=== PATIENT | female | born 1955 | race Caucasian/White ===

== ENCOUNTER 2016-08-19 09:38 | Emergency (ER) | payer OTHER ==
[~2016-08-19] VITALS: Ht 167.6 cm; Wt 100.0 kg
[~2016-08-19 09:38] MED LIST: ACYCLOVIR400 MG PO; AMLODIPINE5 MG PO; ASPIR-8181 MG OR; AVALIDE1 TA1 OR; BETAMETH VAL0.1 % EX; CETIRIZINE10 MG PO; CITALOPRAM20 MG OR; CLARITIN10 MG PO; CLOPIDOGREL75 MG; CLOPIDOGREL75 MG PO; COUMADIN2.5 MG PO; ESGI1 PO; FLEXERIL OR; FLEXERIL PO; FLOVENT HFA44 MCG IN; FUROSEMIDE40 MG PO; HYDROXYZ HCL25 MG PO; IMITREX50 MG OR; KLONOPIN WAF0.5 MG OR; LIPITOR40 MG PO; LOPRESSOR5 MG/5 M1 PO; LORTAB 10 PO; LORTAB 1010 MG PO; LORTAB 7.57.5 MG PO; MEDROL4 M1 OR; METOPROL TAR25 MG PO; MIRTAZAPINE15 MG PO; NAPROSYN500 MG OR; NORCO1 TA1 PO; NORCO1 TA2 PO; NORCO1 TAB PO; OXYCODO-APAP1 TA1 OR; PERCOCET 5/325M1 TAB OR; PLAVIX75 MG OR; PLAVIX75 MG PO; POT CHLORIDE10 ME1 PO; PRAVASTATIN20 MG OR; PREMARIN0.625 MG OR; PREVACID30 M1 OR; REMERON15 MG PO; REMERON7.5 MG MT; RISPERDAL0.25 MG OR; RISPERIDONE2 MG PO; SERTRALINE50 MG PO; TORADOL OR; TRAMADOL HCL50 MG PO; VISTARIL 50MG C50 MG PO; VISTARIL25 MG MT; ZYRTEC10 MG OR
[2016-08-19 11:12] LABS: HEMATOCRIT 31.5 % (37.0-47.0); HEMOGLOBIN 10.6 g/dl (12.0-16.0); IMMATURE GRANULOCYTES 0.4 % (0.0-1.0); MEAN CELL VOLUME 93.8 fL CALC (80.0-100.0); MEAN CORPUSCULAR HGB 31.5 pG CALC (26.0-32.0); MEAN CORPUSCULAR HGB CONC 33.7 g/L CALC (32.0-36.0); NEUT# 4.47 thou/uL (2.00-7.15); RED BLOOD COUNT 3.36 mill/uL (4.20-5.60); RED CELL DISTRI WIDTH 13.2 % (11.5-15.5)
[2016-08-19 11:24] LABS: ALBUMIN 3.7 g/dL (3.2-5.0); ALKALINE PHOSPHATASE 104 u/l (38-126); ANION GAP 14 (6-22 (CALC)); BILIRUBIN, TOTAL 0.5 mg/dL (0.0-1.4); BUN 9 mg/dL (8-23); BUN/CREATININE RATIO 12 (12-20 (CALC)); CALCIUM 9.1 mg/dL (8.4-10.2); CARBON DIOXIDE 25 mmol/l (22-30); CHLORIDE 108 mmol/l (95-108); CREATININE 0.7 mg/dL (0.5-1.0); GFR > 60 ML/MIN (>=60 (CALC)); GFR FOR AFR.AMER. > 60 ML/MIN (>=60 (CALC)); GLUCOSE 97 mg/dL (82-115); POTASSIUM 3.7 mmol/l (3.5-5.1); SGOT/AST 15 u/l (9-36); SGPT/ALT 16 u/l (11-66); SODIUM 143 mmol/l (137-146); TOTAL PROTEIN 7.7 g/dL (6.3-8.2)
[2016-08-19 11:28] LABS: PROTHROMBIN TIME 10.5 SECONDS (9.0-12.5)
[2016-08-19 11:35] LABS: MYOGLOBIN 26 ng/mL (0 - 62)
[2016-08-19 12:13] LABS: INFLUENZA A NONE DETECTED (NONE DETECT); INFLUENZA B NONE DETECTED (NONE DETECT)
[2016-08-19] MEDS ORDERED: MEDDOSEPAK PO (12:32)
[2016-08-19] MEDS ORDERED: VENTOLIN HFA IN (12:32)
[2016-08-19] MEDS ORDERED: LEVAQUIN500 MG PO (12:32)
[2016-08-19 12:42] VITALS: BP 149/70
== END 2016-08-19 12:50 | disposition left against medical advice (07) | DRG 192 ==
LOC: ED 09:38
PROVIDERS: Emergency Medicine
DX: J44.1 Chronic obstructive pulmonary disease with (acute) exacerbation (principal); I10 Essential (primary) hypertension; R09.02 Hypoxemia; J45.909 Unspecified asthma, uncomplicated; G40.909 Epilepsy, unspecified, not intractable, without status epilepticus; F31.9 Bipolar disorder, unspecified; F17.210 Nicotine dependence, cigarettes, uncomplicated; G89.29 Other chronic pain; M54.9 Dorsalgia, unspecified
CPT/HCPCS: J1956

== ENCOUNTER 2017-04-03 15:03 | Inpatient (IN) | payer OTHER ==
[~2017-04-03] VITALS: Ht 167.6 cm; Wt 104.8 kg
[~2017-04-03 15:03] MED LIST changes: +ACCOLATE10 MG PO; +ALAVERT10 M1 PO; +AMLODIPINE BESY10 MG PO; +BUSPAR10 M1 PO; +CILOSTAZOL50 MG PO; +COZAAR25 MG PO; +CYCLOBENZAPR10 MG PO; +DILANTIN100 MG PO; +DITROPAN PO; +DIVALPROEX250 MG PO; +FOLIC ACID1 M1; +HYDROCHLOROT12.5 MG PO; +LASIX 40 MG TAB40 MG PO; +LEVAQUIN500 MG PO; +MEDDOSEPAK PO; +MIRAPEX0.25 MG PO; +NAPROXEN500 MG PO; +NITROSTAT0.4 MG SL; +OXYBUTYNIN5 M1 PO; +PAXIL30 MG PO; +SERTRALINE100 MG PO; +SINGULAIR10 MG PO; +TRAZODONE100 MG PO; +VENTOLIN HFA IN
[2017-04-06 08:53] LABS: HEMATOCRIT 40.4 % (37.0-47.0); HEMOGLOBIN 13.8 g/dl (12.0-16.0); IMMATURE GRANULOCYTES 0.6 % (0.0-1.0); MEAN CELL VOLUME 89.2 fL CALC (80.0-100.0); MEAN CORPUSCULAR HGB 30.5 pG CALC (26.0-32.0); MEAN CORPUSCULAR HGB CONC 34.2 g/L CALC (32.0-36.0); NEUT# 5.26 thou/uL (2.00-7.15); RED BLOOD COUNT 4.53 mill/uL (4.20-5.60); RED CELL DISTRI WIDTH 12.4 % (11.5-15.5)
[2017-04-06 09:19] LABS: ANION GAP 18 (6-22 (CALC)); BUN 22 mg/dL (8-23); BUN/CREATININE RATIO 26 (12-20 (CALC)); CALCIUM 9.9 mg/dL (8.4-10.2); CARBON DIOXIDE 26 mmol/l (22-30); CHLORIDE 102 mmol/l (95-108); CREATININE 0.8 mg/dL (0.5-1.0); GFR > 60 ML/MIN (>=60 (CALC)); GFR FOR AFR.AMER. > 60 ML/MIN (>=60 (CALC)); GLUCOSE 114 mg/dL (82-115); POTASSIUM 3.8 mmol/l (3.5-5.1); SODIUM 142 mmol/l (137-146)
[2017-04-06 09:25] LABS: ACT PARTIAL THROMBO TIME 35.6 SECONDS (20.0-32.5); PROTHROMBIN TIME 11.2 SECONDS (9.0-12.5)
[2017-04-06 15:10] VITALS: BP 149/65
[2017-04-06 15:25] VITALS: BP 134/66
[2017-04-06 15:40] VITALS: BP 137/68
[2017-04-06 15:56] VITALS: BP 147/62
[2017-04-06 16:10] VITALS: BP 129/75
[2017-04-06 19:08] VITALS: BP 140/88
[2017-04-07 00:05] VITALS: BP 133/76
[2017-04-07 03:40] VITALS: BP 150/66
[2017-04-07 06:13] LABS: HEMATOCRIT 29.4 % (37.0-47.0); HEMOGLOBIN 9.9 g/dl (12.0-16.0)
[2017-04-07 06:28] LABS: ANION GAP 14 (6-22 (CALC)); BUN 14 mg/dL (8-23); BUN/CREATININE RATIO 21 (12-20 (CALC)); CALCIUM 8.9 mg/dL (8.4-10.2); CARBON DIOXIDE 28 mmol/l (22-30); CHLORIDE 101 mmol/l (95-108); CREATININE 0.7 mg/dL (0.5-1.0); GFR > 60 ML/MIN (>=60 (CALC)); GFR FOR AFR.AMER. > 60 ML/MIN (>=60 (CALC)); GLUCOSE 118 mg/dL (82-115); MAGNESIUM 1.7 mg/dL (1.6-2.3); POTASSIUM 4.3 mmol/l (3.5-5.1); SODIUM 139 mmol/l (137-146)
[2017-04-07 09:17] VITALS: BP 143/73
[2017-04-07 15:18] VITALS: BP 140/77
[2017-04-07 20:15] VITALS: BP 117/56
[2017-04-08 00:45] VITALS: BP 137/61
[2017-04-08 05:16] VITALS: BP 127/50
[2017-04-08 05:29] LABS: HEMATOCRIT 26.3 % (37.0-47.0); HEMOGLOBIN 8.7 g/dl (12.0-16.0)
[2017-04-08 05:34] LABS: ANION GAP 14 (6-22 (CALC)); BUN 10 mg/dL (8-23); BUN/CREATININE RATIO 16 (12-20 (CALC)); CALCIUM 8.7 mg/dL (8.4-10.2); CARBON DIOXIDE 27 mmol/l (22-30); CHLORIDE 100 mmol/l (95-108); CREATININE 0.6 mg/dL (0.5-1.0); GFR > 60 ML/MIN (>=60 (CALC)); GFR FOR AFR.AMER. > 60 ML/MIN (>=60 (CALC)); GLUCOSE 108 mg/dL (82-115); POTASSIUM 3.6 mmol/l (3.5-5.1); SODIUM 138 mmol/l (137-146)
[2017-04-08 07:24] VITALS: BP 127/76
[2017-04-08 08:35] VITALS: BP 127/76
[2017-04-08] MEDS ORDERED: PERCOCET 10/31 COMBO PO (12:26)
[2017-04-08] MEDS ORDERED: PROTONIX40 MG PO (12:28)
[2017-04-08] MEDS ORDERED: ASPIRIN EC325 MG PO (12:28)
== END 2017-04-08 13:30 | disposition home or self-care (01) | DRG 470 ==
LOC: MS2 04-06 08:08
PROVIDERS: ADMIT Orthopaedic Surgery; ATTEND Internal Medicine
PROC: 0SR904A Replacement of Right Hip Joint with Ceramic on Polyethylene Synthetic Substitute, Uncemented, Open Approach (ICD-10-PCS; principal; 2017-04-06)
DX: M16.11 Unilateral primary osteoarthritis, right hip (principal); M25.751 Osteophyte, right hip; I10 Essential (primary) hypertension; F32.9 Major depressive disorder, single episode, unspecified; F41.9 Anxiety disorder, unspecified; J44.9 Chronic obstructive pulmonary disease, unspecified; Z96.652 Presence of left artificial knee joint; Z87.891 Personal history of nicotine dependence
CPT/HCPCS: J1756; J2270; J2795

== ENCOUNTER 2017-04-20 20:10 | Emergency (ER) | payer OTHER ==
[~2017-04-20] VITALS: Ht 167.6 cm; Wt 102.7 kg
[~2017-04-20 20:10] MED LIST changes: +ASPIRIN EC325 MG PO; +PERCOCET 10/31 COMBO PO; +PROTONIX40 MG PO
[2017-04-20] MEDS ORDERED: PERCOCET 5/325M1 TAB PO (21:29)
[2017-04-20 21:44] VITALS: BP 124/67
== END 2017-04-20 21:50 | disposition home or self-care (01) | DRG 951 ==
LOC: ED 20:10
DX: Z48.01 Encounter for change or removal of surgical wound dressing (principal); Z96.641 Presence of right artificial hip joint

== ENCOUNTER 2017-05-16 17:42 | Inpatient (IN) | payer OTHER ==
[~2017-05-16] VITALS: Ht 167.6 cm; Wt 109.3 kg
[~2017-05-16 17:42] MED LIST changes: +PERCOCET 5/325M1 TAB PO
--- NOTE | 2017-05-16 19:30 | NUR ---
PATIENT TO ROOM 6 WITH ASSIST OF WALKER.
--- NOTE | 2017-05-16 20:25 | NUR ---
PATIENT MEDICATED FOR PAIN. ABX HUNG AFTER BLOOD CULTURES DRAWN.
[2017-05-16 20:47] LABS: HEMATOCRIT 37.9 % (37.0-47.0); HEMOGLOBIN 12.1 g/dl (12.0-16.0); IMMATURE GRANULOCYTES 0.6 % (0.0-1.0); MEAN CELL VOLUME 93.1 fL CALC (80.0-100.0); MEAN CORPUSCULAR HGB 29.7 pG CALC (26.0-32.0); MEAN CORPUSCULAR HGB CONC 31.9 g/L CALC (32.0-36.0); NEUT# 3.24 thou/uL (2.00-7.15); RED BLOOD COUNT 4.07 mill/uL (4.20-5.60); RED CELL DISTRI WIDTH 13.7 % (11.5-15.5)
--- NOTE | 2017-05-16 21:02 | NUR ---
PATIENT STATES PAIN IS IMRPOVED. TOLERATING VANCOMYCIN WELL. AWARE OF PLANS TO ADMIT.
[2017-05-16 21:05] LABS: ANION GAP 17 (6-22 (CALC)); BUN 11 mg/dL (8-23); BUN/CREATININE RATIO 14 (12-20 (CALC)); CARBON DIOXIDE 26 mmol/l (22-30); CHLORIDE 102 mmol/l (95-108); CREATININE 0.8 mg/dL (0.5-1.0); GFR > 60 ML/MIN (>=60 (CALC)); GFR FOR AFR.AMER. > 60 ML/MIN (>=60 (CALC)); GLUCOSE 102 mg/dL (82-115); POTASSIUM 4.7 mmol/l (3.5-5.1); SODIUM 141 mmol/l (137-146)
--- NOTE | 2017-05-16 21:50 | NUR ---
FIRST ABX COMPLETED. SECOND ABX HUNG. PATIENT STATES PAIN IS STARTING TO RETURN. RATES PAIN A 3-4 ON 1-10 PAIN SCALE. ALL DIAGNOSTICS COMPLETED. AWAITING PLAN OF CARE.
--- NOTE | 2017-05-16 23:02 | NUR ---
REPORT CALLED TO DONNA. PATIENT READIED FOR TRANSPORT TO FLOOR.
--- NOTE | 2017-05-16 23:11 | NUR ---
PATIENT REQUESTING PAIN MED. WILL ATTEMPT TO MEDICATE PRIOR TO TRANSPORT TO FLOOR.
--- NOTE | 2017-05-16 23:30 | NUR ---
PT TO ROOM 289 VIA STRETCHER ACCOMPANIED BY ER STAFF. PT ABLE TO AMBULATE TO BED WITH WALKER.
--- NOTE | 2017-05-16 23:32 | NUR ---
PATIENT MEDICATED ADDITIONALLY FOR PAIN. PATIENT TRANSPORTED TO FLOOR VIA STRETCHER AND WITH RN.
[2017-05-16 23:35] VITALS: BP 126/86
--- NOTE | 2017-05-16 23:40 | NUR ---
PT SITTING UP IN BED. PT IS ALERT AND ORIENTED X3. PERRLA. LUNGS ARE CLEAR. RESP ARE EVEN AND UNLABORED. NO DISTRESS NOTED. HR REGULAR. PULSES PALPABLE THROUGHOUT. EDEMA TO RIGHT LOWER EXTREMITY. WOUND TO RIGHT HIP. PICTURES PLACED ON CHART. BS ACTIVE. PT REPORTS A NOMRAL BM ON 05/16/17 AM. #20 LAC SALINE LOCKED AT THIS TIME. WILL CONTINUE TO MONITOR
--- NOTE | 2017-05-17 04:04 | NUR ---
PT RESTING IN BED WITH EYES CLOSED. RESP ARE EVEN AND UNLABORED. NO DISTRESS NOTED. WILL CONTINUE TO MONITOR
--- NOTE | 2017-05-17 05:00 | NUR ---
LAB INTO DRAW AM LABS
[2017-05-17 05:45] VITALS: BP 114/70
--- NOTE | 2017-05-17 07:45 | NUR ---
ASSESSMENT IS COMPLETED: IV SITE IS FREE FROM REDNESS OR EDEMA. INCISON SITE HAS SCABBING NOTED. AND REDNESS WITH WARM TO THE TOUCH. CONTINUE TO OSBERVE AND MONITOR.
--- NOTE | 2017-05-17 09:47 | NUR ---
S: MADAN OCONNELL is a 62 F who presents with right hip pain secondary to cellulitis. She has a history of hip replacement on 04/06/17, smoking, HTN. All medications in patient's chart were reviewed. O: VS: BP 120/42, P 69, RR 18,T 96.4 W 108.862 kg, HT 66in, Scr= 0.8, CrCl= 91.0 ml/min A: Wound culture is pending. Blood culture pending. P: Patient is on Zosyn 3.375 gm IV Q6H. Vancomycin ordered for pharmacy to dose. Start Vancomycin 1250 mg IV Q12H. Vancomycin trough is drawn before the 4th dose on 05/18/17 @ 21:30. Vancomycin goal trough is between 10-15 mcg/ml. Pharmacy will follow and or advise on antibiotics use as needed.
--- NOTE | 2017-05-17 12:15 | NUR ---
PT IS VISITING WITH FAMILY AND FRIENDS NO DISTRESS NOTED. CONTINUE TO OBSERVE AND MONITOR.
--- NOTE | 2017-05-17 12:34 | NUR ---
[facility] Pt was concerned about Trazodone. She claims she didn't sleep last night. Went through grocery bag full of medications. Pt claims she takes all medications as directed, however duplicate vials of buspirone, traxodone, divalproex, loratadine, and hydroxyzine are present in the bag. Pt states that she has KNDA and complains of being hungry. (Pt's food came in during this interview). Pt insists that she needs 400 mg of trazodone tonight to sleep. Pt had no further questions or concerns.
[2017-05-17] MEDS ORDERED: PAROXETINE10 MG PO (12:38)
[2017-05-17 15:20] VITALS: BP 114/58
--- NOTE | 2017-05-17 16:15 | NUR ---
PT CONTINUES TO REST WITH NO DISTRESS NOTEED IV SITE IS REE FROM REDNESS OR EDEMA. CONTINUE TO OSBERVE AND MONITOR.
--- NOTE | 2017-05-17 16:24 | NUR ---
ORDERS FOR DRESSING ON R HIP. PT INQUIRED ABOUT HER XRAY RESULTS. CLEANED WITH NS AND PLACED WET TO DRY DRESSING SECURED WITH TAPE,
[2017-05-17 19:20] VITALS: BP 110/65
--- NOTE | 2017-05-17 19:45 | NUR ---
PT SITTING UP IN BED VISITING WITH VISITOR. PT IS ALERT AND ORIENTED X3. PERRLA. RESP ARE EVEN AND UNLABORED. NO DISTRESS NOTED. LUNGS ARE CLEAR. HR REGULAR. PULESE PALPABLE THROUGHOUT. EDEMA NOTED TO RIGHT LOWER EXT. BS ACTIVE. #20 LAC SALINE LOCKED. NO REDNESS OR EDEMA NOTED. WILL CONTINUE TO MONITOR
--- NOTE | 2017-05-18 | NUR ---
PT RESTING IN BED WITH EYES CLOSED. RESP ARE EVEN AND UNLABORED. NO DISTRESS NOTED. WILL CONTINUE TO MONITOR
[2017-05-18 03:24] VITALS: BP 114/62
--- NOTE | 2017-05-18 04:00 | NUR ---
PT RESTING IN BED WITH EYES CLOSED. RESP ARE EVEN AND UNLABORED. NO DISTRESS NOTED. WILL CONTINUE TO MONITOR
[2017-05-18 07:54] LABS: HEMATOCRIT 35.6 % (37.0-47.0); HEMOGLOBIN 10.8 g/dl (12.0-16.0); IMMATURE GRANULOCYTES 0.2 % (0.0-1.0); MEAN CELL VOLUME 97.5 fL CALC (80.0-100.0); MEAN CORPUSCULAR HGB 29.6 pG CALC (26.0-32.0); MEAN CORPUSCULAR HGB CONC 30.3 g/L CALC (32.0-36.0); NEUT# 2.58 thou/uL (2.00-7.15); RED BLOOD COUNT 3.65 mill/uL (4.20-5.60); RED CELL DISTRI WIDTH 13.6 % (11.5-15.5)
[2017-05-18 08:02] LABS: ANION GAP 11 (6-22 (CALC)); BUN 9 mg/dL (8-23); BUN/CREATININE RATIO 11 (12-20 (CALC)); CALCIUM 9.4 mg/dL (8.4-10.2); CARBON DIOXIDE 23 mmol/l (22-30); CHLORIDE 111 mmol/l (95-108); CREATININE 0.8 mg/dL (0.5-1.0); GFR > 60 ML/MIN (>=60 (CALC)); GFR FOR AFR.AMER. > 60 ML/MIN (>=60 (CALC)); GLUCOSE 87 mg/dL (82-115); MAGNESIUM 1.9 mg/dL (1.6-2.3); POTASSIUM 4.5 mmol/l (3.5-5.1); SODIUM 140 mmol/l (137-146)
--- NOTE | 2017-05-18 08:05 | NUR ---
ASSESSMENT IS COMPLETD: PT IS RELAXING IN BED WITH NO DISTRESS NOTED. IV SITE IS FREE FROM REDNESS OR EDEMA. DRESSING ON R HIP IS CDI. CONTINUE TO OSBERVE AND MONITOR.
[2017-05-18 08:15] VITALS: BP 127/61
--- NOTE | 2017-05-18 08:15 | NUR ---
RECEIVED REPORT FROM CLAUDIA THOMPSON. PT WAS AWAKE IN BED. PT ASSESSMENT COMPLETED. A&O X3. PERRLA. RESPIRATIONS EVEN AND UNLABORED. LUNG SOUNDS CLEAR IN ALL AREAS. HR NORMAL. BOWEL SOUNDS ACTIVE. STRONG RADIAL/PEDAL PULSES. GOOD CAP REFILL, <3 SECONDS. SLIGHT PINK TONE ON RIGHT HIP. NO EDEMA OR WARMTH TO AREA. PT STATES PAIN 7/10. BED IN LOWEST POSITION. WHEELS LOCKED. CALL LIGHT PLACED WITHIN REACH. PT ENCOURAGED TO CALL FOR HELP.
--- NOTE | 2017-05-18 08:20 | NUR ---
SPOKE WITH JOZEF IN THE LAB RE: WOUND CS AND WAS INFORMED PT HAS ECOLI IN THE WOUND SENSITIVITY WILL BE TOMORROW.
[2017-05-18 08:56] VITALS: BP 127/61
--- NOTE | 2017-05-18 10:15 | NUR ---
PT STATE PAIN WAS 7/10. PT MEDICATED W/ PERCOCET 2 TABS ORDER. PT STATES 1 TAB HAS NOT BEEN EFFECTIVE. PT DRESSING TO RIGHT HIP WAS CHANGED. REMOVED ABD PAD AND NOTED YELLOW EXUDATE FROM PROXIMAL SITE, WOUND BED WITH YELLOW SLOUGHING TISSUE. SMALL DISTAL OPENING WITH DRIED SCABBING THAT IS LIFTING AT EDGES. CLEASED WITH NS, WET TO DRY DRESSING APPLIED. NO BLEEDING NOTED. PT TOLERATED FAIR. BED IN LOWEST POSITION, WHEELS LOCKED. CALL LIGHT PLACED WITHIN REACH. PT EDUCATED TO CALL FOR HELP.
--- NOTE | 2017-05-18 12:35 | NUR ---
PT IS RELAXING AND VISITING WITH FAMILY AND FRIENDS NO DISTRESS NOTED. IV SITE IS FREE FROM REDNESS OR EDEMA.
[2017-05-18] MEDS ORDERED: AUGMENTIN875TAB PO (13:19)
[2017-05-18] MEDS ORDERED: DOXYCYCL HYC100 MG PO (13:19)
[2017-05-18] MEDS ORDERED: FLORASTOR250 M1 PO (13:24)
--- NOTE | 2017-05-18 14:08 | NUR ---
PT RECEIVED DISCHARGE INSTRUCTIONS AND VERBALIZED UNDERSTANDING. IV SITE DISCONTINEUD CATHETER INTACT. NO REDNESS OR EDEMA. FAMILY IN THE ROOM. EXPLAINED DISCHARGE INSTRUCTIONS , Discharge instructions given. Patient verbalizes understanding of same. Discharged in stable condition via Wheelchair to Home with family. All belongings sent with pt.
--- NOTE | 2017-05-18 19:03 | NUR ---
SPOKE TO PT RE: MEDICATIONS WILL WINE MAKER ON SUNDAY, IT IS IN THE MED ROOM.
== END 2017-05-18 14:03 | disposition home health service (06) | DRG 863 ==
LOC: ED 17:42 → ED-I 22:20 → ED 22:35 → MS2 22:36
PROVIDERS: Family Medicine; Nurse Practitioner Family; ADMIT Internal Medicine; ATTEND Internal Medicine
PROC: 3E0234Z Introduction of Serum, Toxoid and Vaccine into Muscle, Percutaneous Approach (ICD-10-PCS; principal; 2017-05-17)
DX: T81.4XXA Infection following a procedure, initial encounter (principal); L03.115 Cellulitis of right lower limb; E11.9 Type 2 diabetes mellitus without complications; B96.20 Unspecified Escherichia coli [E. coli] as the cause of diseases classified elsewhere; B96.89 Other specified bacterial agents as the cause of diseases classified elsewhere; I10 Essential (primary) hypertension; E78.5 Hyperlipidemia, unspecified; F17.210 Nicotine dependence, cigarettes, uncomplicated; F31.9 Bipolar disorder, unspecified; J44.9 Chronic obstructive pulmonary disease, unspecified; M19.90 Unspecified osteoarthritis, unspecified site; G40.909 Epilepsy, unspecified, not intractable, without status epilepticus; Y83.1 Surgical operation with implant of artificial internal device as the cause of abnormal reaction of the patient, or of later complication, without mention of misadventure at the time of the procedure; Z96.641 Presence of right artificial hip joint; Z96.652 Presence of left artificial knee joint; Z79.84 Long term (current) use of oral hypoglycemic drugs; Z86.73 Personal history of transient ischemic attack (TIA), and cerebral infarction without residual deficits; Z23 Encounter for immunization
CPT/HCPCS: J1650; J3370

== ENCOUNTER 2017-09-26 11:32 | Emergency (ER) | payer OTHER ==
[~2017-09-26] VITALS: Ht 167.6 cm; Wt 110.0 kg
[~2017-09-26 11:32] MED LIST changes: +AUGMENTIN875TAB PO; +DAPTOMYCIN500 MG IV; +DOXYCYCL HYC100 MG PO; +FLORASTOR250 M1 PO; +PAROXETINE10 MG PO
[2017-09-26 12:46] LABS: HEMATOCRIT 36.6 % (37.0-47.0); HEMOGLOBIN 12.3 g/dl (12.0-16.0); IMMATURE GRANULOCYTES 0.6 % (0.0-1.0); MEAN CELL VOLUME 89.1 fL CALC (80.0-100.0); MEAN CORPUSCULAR HGB 29.9 pG CALC (26.0-32.0); MEAN CORPUSCULAR HGB CONC 33.6 g/L CALC (32.0-36.0); NEUT# 4.25 thou/uL (2.00-7.15); RED BLOOD COUNT 4.11 mill/uL (4.20-5.60); RED CELL DISTRI WIDTH 12.7 % (11.5-15.5)
[2017-09-26 12:56] LABS: BUN 18 mg/dL (8-23); BUN/CREATININE RATIO 16 (12-20 (CALC)); CHLORIDE 98 mmol/l (95-108); CREATININE 1.1 mg/dL (0.5-1.0); GFR 50 ML/MIN (>=60 (CALC)); GFR FOR AFR.AMER. > 60 ML/MIN (>=60 (CALC)); SODIUM 139 mmol/l (137-146)
[2017-09-26 12:57] LABS: ANION GAP 14 (6-22 (CALC)); CARBON DIOXIDE 30 mmol/l (22-30); POTASSIUM 3.2 mmol/l (3.5-5.1)
[2017-09-26 15:23] VITALS: BP 106/59
== END 2017-09-26 15:23 | disposition short-term general hospital (02) | DRG 282 ==
LOC: ED 11:32
PROVIDERS: Family Medicine
DX: I21.4 Non-ST elevation (NSTEMI) myocardial infarction (principal); I10 Essential (primary) hypertension; F17.210 Nicotine dependence, cigarettes, uncomplicated; M19.90 Unspecified osteoarthritis, unspecified site; G40.909 Epilepsy, unspecified, not intractable, without status epilepticus; M25.551 Pain in right hip; M25.511 Pain in right shoulder; W19.XXXA Unspecified fall, initial encounter; Y92.009 Unspecified place in unspecified non-institutional (private) residence as the place of occurrence of the external cause

== ENCOUNTER 2017-10-05 08:42 | Emergency (ER) | payer OTHER ==
[~2017-10-05] VITALS: Ht 167.6 cm; Wt 110.0 kg
[2017-10-05] MEDS ORDERED: ATORVASTATIN CA80 MG PO (09:20)
[2017-10-05] MEDS ORDERED: BRILINTA90 MG PO (09:20)
[2017-10-05] MEDS ORDERED: TRAZODONE50 MG PO (09:21)
[2017-10-05 09:27] LABS: URINE BILIRUBIN - DIPSTICK NEGATIVE (NEGATIVE); URINE BLOOD DIPSTICK NEGATIVE (NEGATIVE); URINE COLOR YELLOW; URINE GLUCOSE - DIPSTICK NEGATIVE (NEGATIVE); URINE KETONE NEGATIVE (NEGATIVE); URINE LEUK ESTERASE NEGATIVE (NEGATIVE); URINE NITRITE - DIPSTICK NEGATIVE (Negative); URINE PH 6.5 (4.5-8.0); URINE PROTEIN - DIPSTICK NEGATIVE (NEG-TRACE); URINE UROBILINOGEN - DIPSTICK 0.2 E.U./dL (0.2)
[2017-10-05 09:30] LABS: URINE CLARITY CLEAR
[2017-10-05 09:31] LABS: HEMATOCRIT 32.3 % (37.0-47.0); HEMOGLOBIN 10.8 g/dl (12.0-16.0); IMMATURE GRANULOCYTES 0.7 % (0.0-1.0); MEAN CELL VOLUME 88.3 fL CALC (80.0-100.0); MEAN CORPUSCULAR HGB 29.5 pG CALC (26.0-32.0); MEAN CORPUSCULAR HGB CONC 33.4 g/L CALC (32.0-36.0); NEUT# 5.47 thou/uL (2.00-7.15); RED BLOOD COUNT 3.66 mill/uL (4.20-5.60); RED CELL DISTRI WIDTH 12.9 % (11.5-15.5)
[2017-10-05 09:42] LABS: ALBUMIN 3.3 g/dL (3.2-5.0); ALKALINE PHOSPHATASE 124 u/l (38-126); ANION GAP 13 (6-22 (CALC)); BILIRUBIN, TOTAL 0.5 mg/dL (0.0-1.4); BUN 9 mg/dL (8-23); BUN/CREATININE RATIO 16 (12-20 (CALC)); CARBON DIOXIDE 21 mmol/l (22-30); CREATININE 0.6 mg/dL (0.5-1.0); GFR > 60 ML/MIN (>=60 (CALC)); GFR FOR AFR.AMER. > 60 ML/MIN (>=60 (CALC)); POTASSIUM 3.8 mmol/l (3.5-5.1); SGOT/AST 13 u/l (9-36); SGPT/ALT 24 u/l (11-66); SODIUM 140 mmol/l (137-146); TOTAL PROTEIN 6.8 g/dL (6.3-8.2)
[2017-10-05 09:43] LABS: CHLORIDE 110 mmol/l (95-108)
[2017-10-05] MEDS ORDERED: DOXYCYCL HYC100 MG PO (11:20)
[2017-10-05] MEDS ORDERED: ALBUTEROL SUL0.083 % IN (11:20)
[2017-10-05 11:54] VITALS: BP 145/74
== END 2017-10-05 11:54 | disposition home or self-care (01) | DRG 192 ==
LOC: ED 08:42
PROVIDERS: Family Medicine
DX: J44.1 Chronic obstructive pulmonary disease with (acute) exacerbation (principal); F17.210 Nicotine dependence, cigarettes, uncomplicated; R06.02 Shortness of breath; M54.5 Low back pain; I10 Essential (primary) hypertension; R05 Cough

== ENCOUNTER 2018-01-08 19:05 | Emergency (ER) | payer OTHER ==
[~2018-01-08] VITALS: Ht 167.6 cm; Wt 107.3 kg
[~2018-01-08 19:05] MED LIST changes: +ALBUTEROL SUL0.083 % IN; +ATORVASTATIN CA80 MG PO; +BRILINTA90 MG PO; +IBUPROFEN600 MG PO; +TRAZODONE50 MG PO
[2018-01-08] MEDS ORDERED: KEFLEX500 M1 PO (19:44)
[2018-01-08 19:58] VITALS: BP 170/89
== END 2018-01-08 19:58 | disposition home or self-care (01) ==
LOC: ED 19:05
DX: S81.012D Laceration without foreign body, left knee, subsequent encounter (principal); M19.90 Unspecified osteoarthritis, unspecified site; I10 Essential (primary) hypertension; G40.909 Epilepsy, unspecified, not intractable, without status epilepticus; I25.2 Old myocardial infarction; J44.9 Chronic obstructive pulmonary disease, unspecified; X58.XXXD Exposure to other specified factors, subsequent encounter

== ENCOUNTER 2018-06-20 08:10 | Inpatient (IN) | payer OTHER ==
[~2018-06-20] VITALS: Ht 167.6 cm; Wt 111.4 kg
[~2018-06-20 08:10] MED LIST changes: +KEFLEX500 M1 PO
--- NOTE | 2018-06-20 08:20 | NUR ---
PATIENT TO ROOM VIA EMS AND PHYSICIAN AT BEDSIDE FOR EVAL
--- NOTE | 2018-06-20 08:54 | NUR ---
RECONCILLING MEDICATION, PT STATES THAT SHE HAS A LOT OF OTHER MEDICATIONS BUT SHE DOES NOT TAKE ANY OF THEM EXCEPT TWO AND NEBULIZER. PT CANT REMEMBER THE OTHER NAMES OF MEDICATIONS.
--- NOTE | 2018-06-20 08:56 | NUR ---
PT HAS SKIN TEAR ON UPPER FOREARM OF RIGHT ARM FROM HITTING ARM LAST NIGHT ON CABINET. CLEANSED AND BANDAGED UP, NO BLEEDING
[2018-06-20 09:12] LABS: HEMATOCRIT 37.7 % (37.0-47.0); HEMOGLOBIN 12.2 g/dl (12.0-16.0); IMMATURE GRANULOCYTES 0.4 % (0.0-5.0); MEAN CORPUSCULAR HGB 31.3 pG CALC (26.0-32.0); MEAN CORPUSCULAR HGB CONC 32.4 g/L CALC (32.0-36.0); NEUT# 12.76 thou/uL (2.00-7.15); RED BLOOD COUNT 3.9 mill/uL (4.20-5.60); RED CELL DISTRI WIDTH 13.1 % (11.5-15.5)
[2018-06-20 09:19] LABS: MEAN CELL VOLUME 96.7 fL CALC (80.0-100.0)
[2018-06-20 09:28] LABS: ALBUMIN 3.6 g/dL (3.2-5.0); ALKALINE PHOSPHATASE 147 u/l (38-126); ANION GAP 14 (6-22 (CALC)); BILIRUBIN, TOTAL 0.6 mg/dL (0.0-1.4); BUN 10 mg/dL (8-23); BUN/CREATININE RATIO 18 (12-20 (CALC)); CARBON DIOXIDE 24 mmol/l (22-30); CHLORIDE 106 mmol/l (95-108); CREATININE 0.6 mg/dL (0.5-1.0); GFR > 60 ML/MIN (>=60 (CALC)); GFR FOR AFR.AMER. > 60 ML/MIN (>=60 (CALC)); POTASSIUM 3.6 mmol/l (3.5-5.1); SGOT/AST 12 u/l (9-36); SODIUM 141 mmol/l (137-146); TOTAL PROTEIN 6.9 g/dL (6.3-8.2)
--- NOTE | 2018-06-20 09:30 | NUR ---
BIPAP STANDBY. PLACED ON 2L NC.
--- NOTE | 2018-06-20 09:30 | NUR ---
PT STATES FEELS MUCH BETTER AFTER BIPAP REMOVED AND NEBULIZER. SITTING UP TALKING, IS ABLE TO COUGH UP YELLOWISH SPUTUM. PT STATES HAS BEEN LONG TIME CIGARETTE SMOKER AND CONTINUES TO SMOKE
--- NOTE | 2018-06-20 10:07 | NUR ---
PT UP TO BEDSIDE COMMODE, STATES FEELS MUCH BETTER
--- NOTE | 2018-06-20 10:58 | NUR ---
ASSISTED PT UP TO BEDSIDE COMMODE, TOTAL OF 400CC OF URINE OUTPUT AT THIS TIME. STATES FEELS MUCH BETTER, EASIER BREATHING SITTING UP IN BED AT THIS TIME, WITH SIDE RAILS UP AND CALL LIGHT WITHIN REACH.
--- NOTE | 2018-06-20 11:45 | NUR ---
PT COMPLAINT OF HEADACHE, TYLENOL 500 MG. ORDER GIVEN VERBAL AND GIVEN TO PT
--- NOTE | 2018-06-20 11:50 | NUR ---
PT DOWN TO CT SSCAN
--- NOTE | 2018-06-20 12:10 | NUR ---
REPORT CALLED TO MED SURG FOR CONTINUATION OF CARE
--- NOTE | 2018-06-20 12:10 | NUR ---
FOOD TRAY GIVEN PT WILL GO UP TO MED SURG SOON TRAY IS DONE
--- NOTE | 2018-06-20 12:42 | NUR ---
PT ARRIVED TO FLOOR VIA STRETCHER ACCOMPANIED BY CLAUDIA AGUILERA. PT TRANSFERED SELF TO BED. SOB W/ MINIMAL EXERTION. PRODUCTIVE COUHG, YELLOW THICK SPUTUM. O2 @ 3L VIA NC. PT REPORTS HEACACHE. DR. DRAKE NOTIFIED. REPORTING OF CONCERNS ENCOURAGED. PT ORIENTED TO ROOM AND EQUIPMENT. PLAN OF CARE DISCUSSED. ABX 1ST DOSES ADMINISTERED. PT EDUCATED ON MEDS, INDICATIONS, POSSIBLE S/E, ADN ADVERSE REACTION. CALL LIGHT REVIEWED AND IN REACH. PT STATES UDNERSTANDING.
--- NOTE | 2018-06-20 12:52 | NUR ---
PT TAKEN TO FLOOR PER STRETCHER AND TELEMENTRY
[2018-06-20 13:13] VITALS: BP 178/88
--- NOTE | 2018-06-20 16:35 | NUR ---
PT CONSENTED TO RECEIVE PNEUMOCOCCAL VACCINATION, HOWEVER PT RECEIVED PNEUMOVAX 05/17/17. NO ADDITIONAL DOSES RECOMMENDED UNTIL PT REACHES AGE OF 65.
[2018-06-20 16:55] VITALS: BP 176/86
[2018-06-20 18:50] VITALS: BP 115/54
--- NOTE | 2018-06-20 19:05 | NUR ---
REPORT RECEIVED FROM CLAUDIA PRADO. PT RESTING IN BED. NO SIGNS OR SYMPTOMS OF DISTRESS. WILL CONTINUE TO MONITOR.
--- NOTE | 2018-06-20 21:00 | NUR ---
PT RESTING IN BED WITH EYES CLOSED, EASILY AROUSED. ALERT AND ORIENTED. PT DENIES ANY NEEDS AT THIS TIME. TELE MONITOR IN PLACE. RESPIRATIONS LABORED ON O2 @ 2L VIA NC. PT ENCOURAGED TO USE CALL RALTIFF IF NEEDS SHOULD ARISE. CALL LIGHT WITHIN REACH. WILL CONTINUE TO MONITOR.
[2018-06-20 23:53] VITALS: BP 150/85
--- NOTE | 2018-06-21 00:38 | NUR ---
PT RESTING IN BED WITH EYES CLOSED. NO SIGNS OR SYMPTOMS OF DISTRESS. SAFETY PRECAUTIONS IN PLACE. WILL CONTINUE TO MONITOR.
[2018-06-21 04:08] VITALS: BP 152/79
--- NOTE | 2018-06-21 05:35 | NUR ---
PT RESTING IN BED WITH EYES CLOSED. NO SIGNS OR SYMPTOMS OF DISTRESS. SAFETY PRECAUTIONS IN PLACE. WILL CONTINUE TO MONITOR.
[2018-06-21 05:51] LABS: IMMATURE GRANULOCYTES 0.8 % (0.0-5.0); MEAN CELL VOLUME 96.1 fL CALC (80.0-100.0); MEAN CORPUSCULAR HGB 31.1 pG CALC (26.0-32.0); MEAN CORPUSCULAR HGB CONC 32.4 g/L CALC (32.0-36.0); NEUT# 15.46 thou/uL (2.00-7.15); RED BLOOD COUNT 4.63 mill/uL (4.20-5.60); RED CELL DISTRI WIDTH 12.9 % (11.5-15.5)
[2018-06-21 05:58] LABS: ALBUMIN 4.1 g/dL (3.2-5.0); ALKALINE PHOSPHATASE 144 u/l (38-126); AMYLASE < 30 u/l (30-110); ANION GAP 19 (6-22 (CALC)); BILIRUBIN, TOTAL 0.4 mg/dL (0.0-1.4); BUN 15 mg/dL (8-23); BUN/CREATININE RATIO 26 (12-20 (CALC)); CARBON DIOXIDE 25 mmol/l (22-30); CHLORIDE 102 mmol/l (95-108); CREATININE 0.6 mg/dL (0.5-1.0); GFR > 60 ML/MIN (>=60 (CALC)); GFR FOR AFR.AMER. > 60 ML/MIN (>=60 (CALC)); LIPASE 30 u/l (23-300); MAGNESIUM 2.3 mg/dL (1.6-2.3); POTASSIUM 4.3 mmol/l (3.5-5.1); SGOT/AST 13 u/l (9-36); SODIUM 141 mmol/l (137-146); TOTAL PROTEIN 7.8 g/dL (6.3-8.2)
[2018-06-21 06:19] LABS: HEMATOCRIT 44.5 % (37.0-47.0); HEMOGLOBIN 14.4 g/dl (12.0-16.0)
[2018-06-21 07:40] VITALS: BP 183/85
--- NOTE | 2018-06-21 07:47 | NUR ---
SHIFT CHANGE REPORT, PT AWAKE ALERT AND ORIENTED SITTING UP IN BED, COUGHING, O2 @ 2L VIA NC IN PLACE, TELE MONITOR IN PLACE, NO C/O PAIN, NEEDS MET, CALL RATLIFF IN REACH.
[2018-06-21 11:25] VITALS: BP 173/79
[2018-06-21 15:15] VITALS: BP 162/79
--- NOTE | 2018-06-21 16:04 | NUR ---
SITTING UP IN BED, HAVING PERIODIC EPISODES OF COUGHING SPELLS, NEEDS ADDRESSED.
--- NOTE | 2018-06-21 19:00 | NUR ---
RECEIVED REPORT FROM DAY NURSE. PT APPEARS ASLEEP AT THIS TIME. NO S/S OF DISTRESS NOTED. CALL RATLIFF IN [facility]. WILL CONTINUE TO MONITOR.
[2018-06-21 19:40] VITALS: BP 153/77
--- NOTE | 2018-06-21 21:59 | NUR ---
PT RESTING IN BED WITH EYES CLOSED. WAKES TO VERBAL STIMULI. PT IS A&0 x3. ASSESMENT COMPLETED AT THIS TIME(SEE INTERVENTIONS) LUNG SOUNDS WHEEZY, HEART SOUNDS NORMAL, BOWEL SOUNDS HYPERACTIVE, NO SWELLING OR EDEMA NOTED. IV FLUSHES WELL. NO NEEDS AT THIS TIME. CALL RATLIFF IN REACH. WILL CONTINUE TO MONITOR.
[2018-06-22] VITALS (7 sets, daily range): BP systolic 114–190; BP diastolic 58–81
--- NOTE | 2018-06-22 | NUR ---
PT RESTING QUIETLY IN BED. NO S/S OF DISTRESS NOTED. CALL RATLIFF IN REACH. WILL CONTINUE TO MONITOR.
--- NOTE | 2018-06-22 04:00 | NUR ---
PT RESTING IN BED WATCHING TV. NO NEEDS AT THIS TIME. CALL [facility]. WILL CONTINUE TO MONITOR.
[2018-06-22 06:10] LABS: HEMATOCRIT 38.4 % (37.0-47.0); HEMOGLOBIN 12.4 g/dl (12.0-16.0); IMMATURE GRANULOCYTES 1.8 % (0.0-5.0); MEAN CELL VOLUME 97.2 fL CALC (80.0-100.0); MEAN CORPUSCULAR HGB 31.4 pG CALC (26.0-32.0); MEAN CORPUSCULAR HGB CONC 32.3 g/L CALC (32.0-36.0); NEUT# 11.41 thou/uL (2.00-7.15); RED BLOOD COUNT 3.95 mill/uL (4.20-5.60)
[2018-06-22 06:23] LABS: ALBUMIN 3.5 g/dL (3.2-5.0); ALKALINE PHOSPHATASE 111 u/l (38-126); ANION GAP 12 (6-22 (CALC)); BILIRUBIN, TOTAL 0.2 mg/dL (0.0-1.4); BUN 23 mg/dL (8-23); BUN/CREATININE RATIO 32 (12-20 (CALC)); CARBON DIOXIDE 28 mmol/l (22-30); CHLORIDE 103 mmol/l (95-108); CREATININE 0.7 mg/dL (0.5-1.0); GFR > 60 ML/MIN (>=60 (CALC)); GFR FOR AFR.AMER. > 60 ML/MIN (>=60 (CALC)); MAGNESIUM 2.2 mg/dL (1.6-2.3); POTASSIUM 4.8 mmol/l (3.5-5.1); SGOT/AST 10 u/l (9-36); SODIUM 139 mmol/l (137-146); TOTAL PROTEIN 6.6 g/dL (6.3-8.2)
--- NOTE | 2018-06-22 07:43 | NUR ---
SHIFT CHANGE REPORT, PT AWAKE ALERT AND ORIENTED, O2 @ 2L VIA NC IN PLACE, STATS SHE FEELS MUCH BETTER TODAY AND HAD A HEADACHE EARLIER THIS AM BUT WAS GIVEN MED WHICH HAS COMPLETELY RESOLVED IT. TELE MONITOR IN PLACE, CALL RATLIFF IN REACH.
[2018-06-22 10:58] LABS: CHOLESTEROL HDL RATIO 4.6 (<4.4 (CALC))
--- NOTE | 2018-06-22 12:00 | NUR ---
DR CORMIER ROUNDED AND DISCUSSED PLAN OF CARE, PT ANXIOUS TO GO HOME BUT STATED WILL STAY IF MD THINKS THATS BEST FOR HER.
[2018-06-22] MEDS ORDERED: ZYRTEC10 MG PO (13:47)
[2018-06-22] MEDS ORDERED: DIVALPROEX SOD250 MG PO (13:48)
[2018-06-22] MEDS ORDERED: ZOLOFT50 MG PO (13:50)
[2018-06-22] MEDS ORDERED: TOPIRAMATE100 MG PO ×2 (13:51)
[2018-06-22] MEDS ORDERED: FLOVENT HF110 MCG/AC IN (13:52)
[2018-06-22] MEDS ORDERED: CLONAZEPAM0.5 MG PO (13:53)
[2018-06-22] MEDS ORDERED: LOPID600 MG PO (13:54)
[2018-06-22] MEDS ORDERED: PAROXETINE10 M1 PO (13:54)
[2018-06-22] MEDS ORDERED: DILANTIN100 MG PO (13:55)
[2018-06-22] MEDS ORDERED: LOSARTAN POTASS50 MG PO (13:56)
[2018-06-22] MEDS ORDERED: SUMATRIPTAN25 MG PO (13:56)
[2018-06-22] MEDS ORDERED: ARISTADA662 MG/2.4 IM (13:57)
[2018-06-22] MEDS ORDERED: HYDROCHLOROT25 MG PO (13:58)
[2018-06-22] MEDS ORDERED: IPRATROPIUM BR0.02 % IN (13:59)
--- NOTE | 2018-06-22 16:00 | NUR ---
RESTING IN BED, ALL NEEDS ADDRESSED, WILL CONTINUE TO MONITOR.
--- NOTE | 2018-06-22 19:00 | NUR ---
RECEIVED REPORT FROM DAY SHIFT NURSE. PT ASLEEP AT THIS TIME. WILL CONTINUE TO MONITOR.
--- NOTE | 2018-06-22 21:25 | NUR ---
PT ASLEEP AT THIS TIME. PT WAKES TO VERY LOUD VERBAL STIMULI. PT IS SWEATY AND HAS A SLIGHT ODOR. OFFERED A SHOWER AND PT ACCEPTS. ASSESMENT COMPLETED AT THIS TIME(SEE INTERVENTION). LUNG SOUNDS WHEEZY, HEART SOUNDS NORMAL, BOWEL SOUNDS ACTIVE. TRACE EDEMA TO LEGS BILAT. IV FLUSHES WELL. NO NEEDS AT THIS TIME. SENIOR VALIDATION ENGINEER IN TO ASSIST PT WITH SHOWER AND CHANGE LINEN.
--- NOTE | 2018-06-23 | NUR ---
PT RESTING IN BED APPEARS ASLEEP AT THIS TIME. NO S/S OF SYMPTOMS OF DISTRESS. CALL RATLIFF IN REACH. WILL CONTINUE TO MONITOR.
--- NOTE | 2018-06-23 04:00 | NUR ---
PT APPEARS TO BE ASLEEP AT THIS TIME. RESP. EVEN AND UNLABORED. CALL RATLIFF IN REACH.
[2018-06-23 05:15] VITALS: BP 152/90
[2018-06-23 05:29] LABS: ANION GAP 15 (6-22 (CALC)); BUN 22 mg/dL (8-23); BUN/CREATININE RATIO 33 (12-20 (CALC)); CARBON DIOXIDE 29 mmol/l (22-30); CHLORIDE 102 mmol/l (95-108); CREATININE 0.7 mg/dL (0.5-1.0); GFR > 60 ML/MIN (>=60 (CALC)); GFR FOR AFR.AMER. > 60 ML/MIN (>=60 (CALC)); MAGNESIUM 2.1 mg/dL (1.6-2.3); POTASSIUM 4.7 mmol/l (3.5-5.1); SODIUM 140 mmol/l (137-146)
[2018-06-23 05:35] LABS: HEMATOCRIT 43.6 % (37.0-47.0); HEMOGLOBIN 13.7 g/dl (12.0-16.0); IMMATURE GRANULOCYTES 1.2 % (0.0-5.0); MEAN CELL VOLUME 97.8 fL CALC (80.0-100.0); MEAN CORPUSCULAR HGB 30.7 pG CALC (26.0-32.0); MEAN CORPUSCULAR HGB CONC 31.4 g/L CALC (32.0-36.0); NEUT# 7.66 thou/uL (2.00-7.15); RED BLOOD COUNT 4.46 mill/uL (4.20-5.60); RED CELL DISTRI WIDTH 12.9 % (11.5-15.5)
--- NOTE | 2018-06-23 07:00 | NUR ---
SHIFT CHANGE REPORT, PT SLEEPING BUT AWAKENED TO VERBAL STIMULI, COUGHING, O2 @ 2L VIA NC IN PLACE, TELE MONITOR IN PLACE, NO C/O DISCOMFORT, CALL RATLIFF IN REACH.
[2018-06-23 07:51] VITALS: BP 175/81
--- NOTE | 2018-06-23 12:00 | NUR ---
DR CORMIER HERE ROUNDING, DISCUSSED PLAN OF CARE, PT TO GO HOME TODAY WITH OXYGEN, CAMBERING MACHINE OPERATOR PROCESSING ORDER, PT STATES UNDERSTANDING.
[2018-06-23 13:34] VITALS: BP 170/75
[2018-06-23] MEDS ORDERED: LEVAQUIN750 MG PO (13:44)
[2018-06-23] MEDS ORDERED: AMLODIPINE BESYL5 MG PO (13:44)
[2018-06-23] MEDS ORDERED: BIOTUSSIN PO (13:44)
[2018-06-23] MEDS ORDERED: IPRATROPIU0.5 MG/3 M IN (13:44)
[2018-06-23] MEDS ORDERED: PREDNISONE10 MG PO (13:44)
--- NOTE | 2018-06-23 15:36 | NUR ---
SITTING IN RECLINER WAITING TO GO HOME, WILL CONTINUE TO MONITOR.
--- NOTE | 2018-06-23 17:46 | NUR ---
Discharge instructions given. Patient verbalizes understanding of same. Discharged in stable condition via Wheelchair to Home with family. All belongings sent with pt.
--- NOTE | 2018-06-23 17:47 | NUR ---
OXYGEN DEDIVERED, PT INSTRUCTED ON OPERATION OF TANK BY INFORMATION SECURITY ENGINEER, PT LEFT FOR HOME
== END 2018-06-23 17:30 | disposition home or self-care (01) | DRG 190 ==
LOC: ED 08:10 → ED-I 10:25 → ED 11:15 → MS2 11:16
PROVIDERS: Emergency Medicine; Nurse Practitioner Family; ADMIT Internal Medicine Nephrology; ATTEND Internal Medicine Nephrology
PROC: 5A09357 Assistance with Respiratory Ventilation, Less than 24 Consecutive Hours, Continuous Positive Airway Pressure (ICD-10-PCS; principal; 2018-06-20)
PROC: 3E02340 Introduction of Influenza Vaccine into Muscle, Percutaneous Approach (ICD-10-PCS; 2018-06-21)
DX: J44.1 Chronic obstructive pulmonary disease with (acute) exacerbation (principal); J18.9 Pneumonia, unspecified organism; J44.0 Chronic obstructive pulmonary disease with (acute) lower respiratory infection; I10 Essential (primary) hypertension; I16.0 Hypertensive urgency; I25.10 Atherosclerotic heart disease of native coronary artery without angina pectoris; E11.9 Type 2 diabetes mellitus without complications; G40.909 Epilepsy, unspecified, not intractable, without status epilepticus; M19.90 Unspecified osteoarthritis, unspecified site; F17.200 Nicotine dependence, unspecified, uncomplicated; F31.9 Bipolar disorder, unspecified; F41.9 Anxiety disorder, unspecified; I73.9 Peripheral vascular disease, unspecified; K76.0 Fatty (change of) liver, not elsewhere classified; I25.2 Old myocardial infarction; T50.906A Underdosing of unspecified drugs, medicaments and biological substances, initial encounter; Z96.652 Presence of left artificial knee joint; Z95.5 Presence of coronary angioplasty implant and graft; Z79.84 Long term (current) use of oral hypoglycemic drugs; Z96.641 Presence of right artificial hip joint; Z91.128 Patient's intentional underdosing of medication regimen for other reason; Z79.02 Long term (current) use of antithrombotics/antiplatelets; Z23 Encounter for immunization
CPT/HCPCS: J1650; J3475

== ENCOUNTER 2019-05-21 | Emergency (ER) | payer OTHER ==
[~2019-05-21] MED LIST changes: +AMLODIPINE BESYL5 MG PO; +ARISTADA662 MG/2.4 IM; +BIOTUSSIN PO; +CLONAZEPAM0.5 MG PO; +DIVALPROEX SOD250 MG PO; +FLOVENT HF110 MCG/AC IN; +HYDROCHLOROT25 MG PO; +IPRATROPIU0.5 MG/3 M IN; +IPRATROPIUM BR0.02 % IN; +LEVAQUIN750 MG PO; +LOPID600 MG PO; +LOSARTAN POTASS50 MG PO; +PAROXETINE10 M1 PO; +PREDNISONE10 MG PO; +SUMATRIPTAN25 MG PO; +TOPIRAMATE100 MG PO; +ZOLOFT50 MG PO; +ZYRTEC10 MG PO
[2019-05-21 05:49] LABS: HEMATOCRIT 37.4 % (37.0-47.0); HEMOGLOBIN 12.2 g/dl (12.0-16.0); IMMATURE GRANULOCYTES 0.4 % (0.0-5.0); MEAN CELL VOLUME 96.9 fL CALC (80.0-100.0); MEAN CORPUSCULAR HGB 31.6 pG CALC (26.0-32.0); MEAN CORPUSCULAR HGB CONC 32.6 g/L CALC (32.0-36.0); NEUT# 5.76 thou/uL (2.00-7.15); RED BLOOD COUNT 3.86 mill/uL (4.20-5.60)
[2019-05-21 06:07] LABS: ALBUMIN 3.7 g/dL (3.2-5.0); ALKALINE PHOSPHATASE 125 u/l (38-126); ANION GAP 12 (6-22 (CALC)); BUN 14 mg/dL (8-23); BUN/CREATININE RATIO 20 (12-20 (CALC)); CARBON DIOXIDE 26 mmol/l (22-30); CHLORIDE 104 mmol/l (95-108); CREATININE 0.7 mg/dL (0.5-1.0); GFR > 60 ML/MIN (>=60 (CALC)); GFR FOR AFR.AMER. > 60 ML/MIN (>=60 (CALC)); POTASSIUM 3.9 mmol/l (3.5-5.1); SGOT/AST 19 u/l (9-36); SODIUM 137 mmol/l (137-146); TOTAL PROTEIN 7.1 g/dL (6.3-8.2)
[2019-05-21 06:08] LABS: BILIRUBIN, TOTAL 0.2 mg/dL (0.0-1.4)
== END 2019-05-21 07:15 | disposition short-term general hospital (02) ==
DX: I21.4 Non-ST elevation (NSTEMI) myocardial infarction (principal); J44.1 Chronic obstructive pulmonary disease with (acute) exacerbation; I10 Essential (primary) hypertension; G40.909 Epilepsy, unspecified, not intractable, without status epilepticus; F17.210 Nicotine dependence, cigarettes, uncomplicated; I25.2 Old myocardial infarction; Z95.5 Presence of coronary angioplasty implant and graft
CPT/HCPCS: J1644

== ENCOUNTER 2019-07-09 | Emergency (ER) | payer OTHER ==
[2019-07-09 11:47] LABS: HEMATOCRIT 40.3 % (37.0-47.0); HEMOGLOBIN 13.1 g/dl (12.0-16.0); IMMATURE GRANULOCYTES 0.3 % (0.0-5.0); MEAN CELL VOLUME 96.4 fL CALC (80.0-100.0); MEAN CORPUSCULAR HGB 31.3 pG CALC (26.0-32.0); MEAN CORPUSCULAR HGB CONC 32.5 g/dL CAL (32.0-36.0); NEUT# 6.45 thou/uL (2.00-7.15); RED BLOOD COUNT 4.18 mill/uL (4.20-5.60); RED CELL DISTRI WIDTH 14.7 % (11.5-15.5)
[2019-07-09 12:10] LABS: D-DIMER 0.17 mg/L (0.19-0.60); INTERNATIONAL NORMALIZED RATIO 0.9 RATIO (0.7-1.3); PROTHROMBIN TIME 9.9 SECONDS (9.0-12.5)
[2019-07-09 12:11] LABS: ALBUMIN 4.1 g/dL (3.2-5.0); ALKALINE PHOSPHATASE 180 u/l (38-126); ANION GAP 14 (6-22 (CALC)); BILIRUBIN, TOTAL 0.4 mg/dL (0.0-1.4); BUN 10 mg/dL (8-23); BUN/CREATININE RATIO 16 (12-20 (CALC)); CARBON DIOXIDE 27 mmol/l (22-30); CHLORIDE 105 mmol/l (95-108); CREATININE 0.6 mg/dL (0.5-1.0); GFR > 60 ML/MIN (>=60 (CALC)); GFR FOR AFR.AMER. > 60 ML/MIN (>=60 (CALC)); POTASSIUM 3.8 mmol/l (3.5-5.1); SGOT/AST 15 u/l (9-36); SODIUM 142 mmol/l (137-146); TOTAL PROTEIN 7.5 g/dL (6.3-8.2)
[2019-07-09 12:22] LABS: MYOGLOBIN 39 ng/mL (0 - 62)
[2019-07-09] MEDS ORDERED: PREDNISONE50 MG PO (12:35)
[2019-07-09] MEDS ORDERED: DOXYCYCL HYC100 MG PO (12:35)
== END 2019-07-09 13:23 | disposition home or self-care (01) ==
PROVIDERS: Family Medicine
DX: J44.1 Chronic obstructive pulmonary disease with (acute) exacerbation (principal); I10 Essential (primary) hypertension; I25.2 Old myocardial infarction; G40.909 Epilepsy, unspecified, not intractable, without status epilepticus; F17.200 Nicotine dependence, unspecified, uncomplicated

== ENCOUNTER 2019-07-25 05:01 | Inpatient (IN) | payer OTHER ==
[~2019-07-25] VITALS: Ht 167.6 cm; Wt 121.0 kg
[~2019-07-25 05:01] MED LIST changes: +PREDNISONE50 MG PO
--- NOTE | 2019-07-25 05:02 | NUR ---
PATIENT TO ROOM 10 VIA EMS STRETCHER. PATIENT STATES SHE JUST FINISHED ABX AND STEROID FOR BRONCHITIS. STATES SHE HAS NOT REALLY IMPROVED MUCH IN THE LAST TWO WEEKS. AND TONIGHT SHE WOKE UP AND COULDN'T BREATH. UNDRESSED INTO A GOWN, PLACED ON MONITOR. TRIAGE COMPLETED AT BEDSIDE. AWAITING MD NAYAK.
[2019-07-25 05:25] LABS: HEMATOCRIT 38.3 % (37.0-47.0); HEMOGLOBIN 11.9 g/dl (12.0-16.0); IMMATURE GRANULOCYTES 0.5 % (0.0-5.0); MEAN CELL VOLUME 101.1 fL CALC (80.0-100.0); MEAN CORPUSCULAR HGB 31.4 pG CALC (26.0-32.0); MEAN CORPUSCULAR HGB CONC 31.1 g/dL CAL (32.0-36.0); NEUT# 7.45 thou/uL (2.00-7.15); RED BLOOD COUNT 3.79 mill/uL (4.20-5.60); RED CELL DISTRI WIDTH 16.2 % (11.5-15.5)
--- NOTE | 2019-07-25 05:28 | NUR ---
COUGH MEDICINE GIVEN. BP 175/91. DR NOTIFIED. ONLY TO GIVE ONE CLONIDINE. 2ND BLOOD CULUTRE DRAWN BY LAB.
[2019-07-25 05:43] LABS: INTERNATIONAL NORMALIZED RATIO 0.9 RATIO (0.7-1.3); PROTHROMBIN TIME 9.2 SECONDS (9.0-12.5)
[2019-07-25 05:55] LABS: MYOGLOBIN 37 ng/mL (0 - 62)
--- NOTE | 2019-07-25 05:55 | NUR ---
[place] [facility] [place] OB[place]ED AND SENT.
--- NOTE | 2019-07-25 06:00 | NUR ---
COVID 19 SWAB OBTAINED. TOLERATED FAIR.
[2019-07-25 06:03] LABS: ALBUMIN 3.4 g/dL (3.2-5.0); ALKALINE PHOSPHATASE 144 u/l (38-126); ANION GAP 11 (6-22 (CALC)); BILIRUBIN, TOTAL 0.3 mg/dL (0.0-1.4); BUN 13 mg/dL (8-23); BUN/CREATININE RATIO 18 (12-20 (CALC)); CARBON DIOXIDE 26 mmol/l (22-30); CHLORIDE 107 mmol/l (95-108); CREATININE 0.7 mg/dL (0.5-1.0); GFR > 60 ML/MIN (>=60 (CALC)); GFR FOR AFR.AMER. > 60 ML/MIN (>=60 (CALC)); POTASSIUM 3.6 mmol/l (3.5-5.1); SGOT/AST 17 u/l (9-36); SODIUM 140 mmol/l (137-146); TOTAL PROTEIN 6.6 g/dL (6.3-8.2)
[2019-07-25 06:40] LABS: URINE BILIRUBIN - DIPSTICK NEGATIVE (NEGATIVE); URINE BLOOD DIPSTICK TRACE-INTACT (NEGATIVE); URINE COLOR YELLOW; URINE GLUCOSE - DIPSTICK NEGATIVE (NEGATIVE); URINE KETONE NEGATIVE (NEGATIVE); URINE LEUK ESTERASE NEGATIVE (NEGATIVE); URINE NITRITE - DIPSTICK NEGATIVE (Negative); URINE PROTEIN - DIPSTICK 100 mg/dL (NEG-TRACE); URINE UROBILINOGEN - DIPSTICK 0.2 E.U./dL (0.2)
[2019-07-25 06:49] LABS: URINE EPITHELIAL CELLS FEW EPI/hpf (0-FEW)
[2019-07-25 06:50] LABS: URINE BACTERIA RARE hpf
--- NOTE | 2019-07-25 07:00 | NUR ---
CARE ASSUMED, PT RESTING NO S/S OF APPARENT DISTRESS, VS STABLE B/P IMPROVED, LEIDY ROBERTSON
--- NOTE | 2019-07-25 07:51 | NUR ---
PT AWARE OFPLANNED ADMISSION GIVES VERBAL CONSENT TO RELEASE INFORMTAION TO HER SISTER REGARDING TREATMENT PLAN ETC...FOR HOSPITAL STAY. IV ABT INFUSING SET UP ASSIST PROVIDED FOR AM MEAL PT AWARE OF ROOM ASSIGNMENT, WILL CONTINUE TO MONITOR,
--- NOTE | 2019-07-25 08:10 | NUR ---
REPORT CALLED TO PHOEBE CORDOBA, ROOM 284 AND [id number] ASSINGED
[2019-07-25] MEDS ORDERED: CLOTRIMAZOLE13 TOP (08:13)
[2019-07-25] MEDS ORDERED: LAMICTAL100 M1 PO (08:13)
[2019-07-25] MEDS ORDERED: CETIRIZINE10 MG PO (08:13)
[2019-07-25] MEDS ORDERED: LOSARTAN POTASS50 MG PO (08:14)
[2019-07-25] MEDS ORDERED: LAMICTAL200 M1 PO (08:19)
[2019-07-25] MEDS ORDERED: LORAZEPAM0.5 MG PO (08:20)
[2019-07-25] MEDS ORDERED: IPRATROPIUM BR0.02 % (08:20)
--- NOTE | 2019-07-25 08:20 | NUR ---
PT TRANSPORTED TO MED SURG VIA WHEELCHAIR, ALL BELONGINGS SENT WITH PATIENT.
[2019-07-25] MEDS ORDERED: PAROXETINE30 M1 PO (08:21)
[2019-07-25] MEDS ORDERED: PLAVIX75 MG PO (08:22)
[2019-07-25] MEDS ORDERED: IBUPROFEN 200200 MG PO (08:22)
[2019-07-25] MEDS ORDERED: HYDROCODONE BIT1 TA7 PO (08:23)
[2019-07-25] MEDS ORDERED: MONTELUKAST SOD10 MG PO (08:23)
[2019-07-25 08:28] VITALS: BP 146/86
--- NOTE | 2019-07-25 08:31 | NUR ---
PT ARRIVED VIA WC WITH STAFF IV SITE INTACT. C/O UNABLE TO BREATHE.
--- NOTE | 2019-07-25 10:00 | NUR ---
ESTEBAN EQUIPMENT WASHER COMPLETED ON PT. PT INQUIRING ABOUT OXYGEN GAVE TUBING TO ASSIST PT REMAINS READING AT 97% ON RA. USES O2 PRN.
[2019-07-25 11:40] VITALS: BP 201/98
--- NOTE | 2019-07-25 12:00 | NUR ---
PT IS EATING LUNCH WITH OUT AND DIFFUCULTY.
--- NOTE | 2019-07-25 14:04 | NUR ---
PT IS RESTING WITH EYES CLOSED. IV SITE IS FREE FROM REDNESS OR EDEMA.
[2019-07-25 14:44] VITALS: BP 160/76
--- NOTE | 2019-07-25 15:43 | NUR ---
PT IS RESING WITH EYES CLOSED
--- NOTE | 2019-07-25 16:30 | NUR ---
PT ARAUJO S BEEN RESING WITH EYES CLOSED NO DISTRESS NOTED. CONITNUE TO OBSERVE AND MONITOR.
[2019-07-25 19:15] VITALS: BP 170/85
--- NOTE | 2019-07-25 19:15 | NUR ---
REPORT FROM PHOEBE CORDOBA. PT RESTING IN BED WITH EYES CLOSED. PT WAKES EASILY TP VERBAL STIMULI. NO APPARENT DISTRESS NOTED. 02 2L/M VIA NC. DISCUSSED POC. PT VERBALIZED UNDERSTANDING. PT DENIES ANY PAIN OR DISCOMFORT. CALL LIGHT WITHIN REACH. WILL CONTINUE TO MONITOR.
--- NOTE | 2019-07-25 21:30 | NUR ---
RN ON SHIFT AT BEDSIDE TO ADMINISTER PRN APRESOLINE FOR BP 165/85. WILL CONTINUE TO MONITOR.
[2019-07-25 23:40] VITALS: BP 145/72
--- NOTE | 2019-07-26 00:23 | NUR ---
PT RESTING IN BED WITH EYES CLOSED. NO APPARENT DISTRESS NOTED. CALL LIGHT WITHIN REACH. WILL CONTINUE TO MONITOR.
[2019-07-26 04:35] VITALS: BP 163/82
[2019-07-26 05:24] LABS: HEMATOCRIT 37.2 % (37.0-47.0); HEMOGLOBIN 11.8 g/dl (12.0-16.0); MEAN CORPUSCULAR HGB 31.7 pG CALC (26.0-32.0); MEAN CORPUSCULAR HGB CONC 31.7 g/dL CAL (32.0-36.0); RED BLOOD COUNT 3.72 mill/uL (4.20-5.60); RED CELL DISTRI WIDTH 16.4 % (11.5-15.5)
[2019-07-26 05:43] LABS: ALBUMIN 3.5 g/dL (3.2-5.0); ALKALINE PHOSPHATASE 133 u/l (38-126); ANION GAP 10 (6-22 (CALC)); BILIRUBIN, TOTAL 0.3 mg/dL (0.0-1.4); BUN 16 mg/dL (8-23); BUN/CREATININE RATIO 30 (12-20 (CALC)); CARBON DIOXIDE 28 mmol/l (22-30); CHLORIDE 105 mmol/l (95-108); CREATININE 0.6 mg/dL (0.5-1.0); GFR > 60 ML/MIN (>=60 (CALC)); GFR FOR AFR.AMER. > 60 ML/MIN (>=60 (CALC)); POTASSIUM 3.9 mmol/l (3.5-5.1); SGOT/AST 19 u/l (9-36); SODIUM 139 mmol/l (137-146); TOTAL PROTEIN 6.5 g/dL (6.3-8.2)
[2019-07-26 08:00] VITALS: BP 174/92
--- NOTE | 2019-07-26 08:15 | NUR ---
REPORT RECEIVED FROM BERYL BECERRIL. PT SITTING UP IN BED HIGH FOWLERS; ALERT AND ORIENTED. DENIES PAIN AND STATES SHE FEELS MUCH BETTER TODAY. RESPIRATIONS EVEN AND UNLABORED ON OXYGEN 2L VIA NC. PRODUCTIVE COUGH WITH SMALL AMOUNTS OF WHITE SPUTUM. BLOOD PRESSURE ELEVATED; SCHEDULED BP MEDS GIVEN AT THIS TIME. PT ON AIRBORNE ISOLATION PRECAUTIONS PENDING COVID TEST RESULTS. PLAN OF CARE REVIEWED. PT ENCOURAGED TO VERBALIZE CONCERNS. STATES UNDERSTANDING. SAFETY MEASURES IN PLACE. CALL LIGHT WITHIN REACH.
[2019-07-26 09:24] VITALS: BP 145/78
--- NOTE | 2019-07-26 09:25 | NUR ---
BLOOD PRESSURE IMPROVED; NOW 145/78. ABT INFUSING AT THIS TIME; IV SITE APPEARS HEALTHY.
--- NOTE | 2019-07-26 10:01 | NUR ---
COVID TEST RESULTS ARE NEGATIVE.
[2019-07-26 11:15] VITALS: BP 159/74
--- NOTE | 2019-07-26 14:10 | NUR ---
DR. MARTINO AT BEDSIDE.
--- NOTE | 2019-07-26 15:15 | NUR ---
IV site discontinued, cath intact. No edema , no redness, voices no discomfort.
[2019-07-26] MEDS ORDERED: MEDDOSEPAK PO (15:22)
[2019-07-26] MEDS ORDERED: ZPAK PO (15:22)
[2019-07-26] MEDS ORDERED: KEFLEX500 MG PO (15:22)
--- NOTE | 2019-07-26 15:30 | NUR ---
Discharge instructions given. Patient verbalizes understanding of same. Discharged in stable condition via Wheelchair to Home with family. All belongings sent with pt.
== END 2019-07-26 15:30 | disposition home or self-care (01) | DRG 190 ==
LOC: ED 05:01 → ED-I 06:33 → ED 07:11 → ED-I 07:12 → MS2 07:21
PROVIDERS: Emergency Medicine; Nurse Practitioner Family; ADMIT Internal Medicine; ATTEND Internal Medicine
DX: J44.1 Chronic obstructive pulmonary disease with (acute) exacerbation (principal); J18.9 Pneumonia, unspecified organism; J44.0 Chronic obstructive pulmonary disease with (acute) lower respiratory infection; I10 Essential (primary) hypertension; G40.909 Epilepsy, unspecified, not intractable, without status epilepticus; F17.210 Nicotine dependence, cigarettes, uncomplicated; I25.10 Atherosclerotic heart disease of native coronary artery without angina pectoris; F31.9 Bipolar disorder, unspecified; I25.2 Old myocardial infarction; Z79.02 Long term (current) use of antithrombotics/antiplatelets; Z95.5 Presence of coronary angioplasty implant and graft; Z20.828 Contact with and (suspected) exposure to other viral communicable diseases

== ENCOUNTER 2019-09-15 12:48 | Emergency (ER) | payer OTHER ==
[~2019-09-15 12:48] MED LIST changes: +CLOTRIMAZOLE13 TOP; +HYDROCODONE BIT1 TA7 PO; +IBUPROFEN 200200 MG PO; +IPRATROPIUM BR0.02 %; +KEFLEX500 MG PO; +LAMICTAL100 M1 PO; +LAMICTAL200 M1 PO; +LORAZEPAM0.5 MG PO; +MONTELUKAST SOD10 MG PO; +PAROXETINE30 M1 PO; +ZPAK PO
[2019-09-15 14:30] LABS: HEMOGLOBIN 12.7 g/dl (12.0-16.0); IMMATURE GRANULOCYTES 0.4 % (0.0-5.0); MEAN CORPUSCULAR HGB 31.6 pG CALC (26.0-32.0); MEAN CORPUSCULAR HGB CONC 32.6 g/dL CAL (32.0-36.0); NEUT# 3.91 thou/uL (2.00-7.15); RED BLOOD COUNT 4.02 mill/uL (4.20-5.60); RED CELL DISTRI WIDTH 13.2 % (11.5-15.5)
[2019-09-15 14:52] LABS: ACT PARTIAL THROMBO TIME 27.7 SECONDS (20.0-32.5); INTERNATIONAL NORMALIZED RATIO 0.9 RATIO (0.7-1.3); PROTHROMBIN TIME 9.5 SECONDS (9.0-12.5)
[2019-09-15 15:01] LABS: ALBUMIN 4.2 g/dL (3.2-5.0); ALKALINE PHOSPHATASE 140 u/l (38-126); ANION GAP 10 (6-22 (CALC)); BUN 11 mg/dL (8-23); BUN/CREATININE RATIO 17 (12-20 (CALC)); CARBON DIOXIDE 27 mmol/l (22-30); CHLORIDE 105 mmol/l (95-108); CREATININE 0.7 mg/dL (0.5-1.0); GFR > 60 ML/MIN (>=60 (CALC)); GFR FOR AFR.AMER. > 60 ML/MIN (>=60 (CALC)); LIPASE 125 u/l (23-300); POTASSIUM 3.9 mmol/l (3.5-5.1); SGOT/AST 21 u/l (9-36); SODIUM 138 mmol/l (137-146); TOTAL PROTEIN 7.8 g/dL (6.3-8.2)
[2019-09-15 15:08] LABS: BILIRUBIN, TOTAL 0.5 mg/dL (0.0-1.4)
[2019-09-15 15:33] LABS: URINE BILIRUBIN - DIPSTICK NEGATIVE (NEGATIVE); URINE BLOOD DIPSTICK TRACE-INTACT (NEGATIVE); URINE COLOR YELLOW; URINE GLUCOSE - DIPSTICK NEGATIVE (NEGATIVE); URINE KETONE NEGATIVE (NEGATIVE); URINE LEUK ESTERASE NEGATIVE (NEGATIVE); URINE NITRITE - DIPSTICK NEGATIVE (Negative); URINE PH 6.5 (4.5-8.0); URINE PROTEIN - DIPSTICK NEGATIVE (NEG-TRACE); URINE SPECIFIC GRAVITY <=1.005; URINE UROBILINOGEN - DIPSTICK 0.2 E.U./dL (0.2)
[2019-09-15 17:32] VITALS: BP 199/86
== END 2019-09-15 17:38 | disposition left against medical advice (07) ==
LOC: ED 12:48
DX: I16.1 Hypertensive emergency (principal); R07.9 Chest pain, unspecified; M25.551 Pain in right hip; I10 Essential (primary) hypertension; J44.9 Chronic obstructive pulmonary disease, unspecified; I25.10 Atherosclerotic heart disease of native coronary artery without angina pectoris; G40.909 Epilepsy, unspecified, not intractable, without status epilepticus; I25.2 Old myocardial infarction; Z95.5 Presence of coronary angioplasty implant and graft; Z96.641 Presence of right artificial hip joint; Z91.19 Patient's noncompliance with other medical treatment and regimen
CPT/HCPCS: Q9967

== ENCOUNTER 2020-02-21 11:18 | Emergency (ER) | payer OTHER ==
[~2020-02-21] VITALS: Ht 167.6 cm; Wt 104.0 kg
[2020-02-21] MEDS ORDERED: HYDROCO/APAP1 TA9 PO (12:41)
[2020-02-21 13:05] VITALS: BP 149/81
== END 2020-02-21 13:05 | disposition home or self-care (01) ==
LOC: ED 11:18
DX: S92.412A Displaced fracture of proximal phalanx of left great toe, initial encounter for closed fracture (principal); I10 Essential (primary) hypertension; J44.9 Chronic obstructive pulmonary disease, unspecified; I25.10 Atherosclerotic heart disease of native coronary artery without angina pectoris; G40.909 Epilepsy, unspecified, not intractable, without status epilepticus; F31.9 Bipolar disorder, unspecified; I25.2 Old myocardial infarction; F17.210 Nicotine dependence, cigarettes, uncomplicated; W18.30XA Fall on same level, unspecified, initial encounter; Y92.510 Bank as the place of occurrence of the external cause; Z95.5 Presence of coronary angioplasty implant and graft

== ENCOUNTER 2020-02-26 17:16 | Observation (INO) | payer OTHER ==
[~2020-02-26] VITALS: Ht 167.6 cm; Wt 111.4 kg
[~2020-02-26 17:16] MED LIST changes: +HYDROCO/APAP1 TA9 PO
--- NOTE | 2020-02-26 17:38 | NUR ---
PT TO ROOM VIA WC
[2020-02-26 18:40] LABS: HEMATOCRIT 35.3 % (37.0-47.0); HEMOGLOBIN 11.2 g/dl (12.0-16.0); IMMATURE GRANULOCYTES 0.8 % (0.0-5.0); MEAN CELL VOLUME 100.6 fL CALC (80.0-100.0); MEAN CORPUSCULAR HGB 31.9 pG CALC (26.0-32.0); MEAN CORPUSCULAR HGB CONC 31.7 g/dL CAL (32.0-36.0); NEUT# 8.02 thou/uL (2.00-7.15); RED BLOOD COUNT 3.51 mill/uL (4.20-5.60); RED CELL DISTRI WIDTH 13.3 % (11.5-15.5)
[2020-02-26 18:47] LABS: ALBUMIN 3.8 g/dL (3.2-5.0); ALKALINE PHOSPHATASE 128 u/l (38-126); ANION GAP 13 (6-22 (CALC)); BILIRUBIN, TOTAL 0.4 mg/dL (0.0-1.4); BUN 17 mg/dL (8-23); BUN/CREATININE RATIO 25 (12-20 (CALC)); CARBON DIOXIDE 23 mmol/l (22-30); CHLORIDE 105 mmol/l (95-108); CREATININE 0.7 mg/dL (0.5-1.0); GFR > 60 ML/MIN (>=60 (CALC)); GFR FOR AFR.AMER. > 60 ML/MIN (>=60 (CALC)); POTASSIUM 4.1 mmol/l (3.5-5.1); SGOT/AST 22 u/l (9-36); SODIUM 137 mmol/l (137-146); TOTAL PROTEIN 6.9 g/dL (6.3-8.2)
--- NOTE | 2020-02-26 19:07 | NUR ---
RECEIVED REPORT FROM CLAUDIA CUNNINGHAM. PT IN CT
--- NOTE | 2020-02-27 00:50 | NUR ---
NO REACTION TO MEDICATIONS. PT ADMITED HOLDING IN ER 15. PT IS AWARE AND WILL CALL FOR HOSPITAL BED.
--- NOTE | 2020-02-27 00:50 | NUR ---
TRANSFERED PT TP HOSPITAL BED, INSTRUCTED ON USE. CALL RATLIFF IN REACH ON BEDSIDE TABLE WITH GLASSES AND CELLPHONE.
--- NOTE | 2020-02-27 01:50 | NUR ---
PT GIVEN WATER AND ASSISTED TO BEDSIDE COMMODE
--- NOTE | 2020-02-27 02:50 | NUR ---
PT RESTING QUIETLY IN BED. CALL RATLIFF ON BEDSIDE TABLE.
--- NOTE | 2020-02-27 05:00 | NUR ---
MEDICATED WITH LORTAB FOR PAIN 12/31. HEMATOMA INCREASED IN SIZE. ELEVATED FOOT OF BED.
--- NOTE | 2020-02-27 06:00 | NUR ---
REPORT GIVEN TO BERYL SANDHU, WILL MOVE PT AFTER CHANGE OF SHIFT.
--- NOTE | 2020-02-27 06:07 | NUR ---
Patient is screened fro intervention. She may benefit from wound care consult as well as PT consult for limited weight bearing on the LE if medical agrees
[2020-02-27 07:15] VITALS: BP 159/59
--- NOTE | 2020-02-27 07:15 | NUR ---
PT ARRIVED TO THE UNIT VIA BED.
[2020-02-27 08:00] VITALS: BP 162/71
--- NOTE | 2020-02-27 08:00 | NUR ---
ASSESSMENT WAS COMPLETED PART A AND B IN ER. REASESED. BREATH SOUNDS ARE CLEAR,BILATERALLY, HR IS REG,PULSES ARE STRONG X4, ABD IS SOFT WITH ACTIV EBS. LEFT FOOT IS PROPPED IN THE BED. BLISTER IS CLOSED. BRUISING IS NOTED. ON THE FOOT AND ON THE THIGH. CONTINUE TO OSBREVE AND MONITOR.
[2020-02-27 09:16] VITALS: BP 162/71
[2020-02-27 09:25] LABS: HEMATOCRIT 32.5 % (37.0-47.0); HEMOGLOBIN 10.2 g/dl (12.0-16.0); IMMATURE GRANULOCYTES 0.5 % (0.0-5.0); MEAN CELL VOLUME 101.6 fL CALC (80.0-100.0); MEAN CORPUSCULAR HGB 31.9 pG CALC (26.0-32.0); MEAN CORPUSCULAR HGB CONC 31.4 g/dL CAL (32.0-36.0); NEUT# 5.4 thou/uL (2.00-7.15); RED BLOOD COUNT 3.2 mill/uL (4.20-5.60); RED CELL DISTRI WIDTH 13.3 % (11.5-15.5)
[2020-02-27 10:10] LABS: ALBUMIN 3.3 g/dL (3.2-5.0); ALKALINE PHOSPHATASE 116 u/l (38-126); ANION GAP 10 (6-22 (CALC)); BILIRUBIN, TOTAL 0.4 mg/dL (0.0-1.4); BUN 14 mg/dL (8-23); BUN/CREATININE RATIO 24 (12-20 (CALC)); CARBON DIOXIDE 25 mmol/l (22-30); CHLORIDE 106 mmol/l (95-108); CREATININE 0.6 mg/dL (0.5-1.0); GFR > 60 ML/MIN (>=60 (CALC)); GFR FOR AFR.AMER. > 60 ML/MIN (>=60 (CALC)); SGOT/AST 17 u/l (9-36); SODIUM 137 mmol/l (137-146); TOTAL PROTEIN 6.1 g/dL (6.3-8.2)
--- NOTE | 2020-02-27 12:00 | NUR ---
PT IV ISTE IS FREE FROM REDNESS OR EDEMA. NO DISTRES NOTED. WAITING ON DR FAY TO WORK GREG HER FOOT.
--- NOTE | 2020-02-27 12:09 | NUR ---
DR FAY IN TO VISIT WITH PT PLAED DRESSING AFTER POPPING THE BLOOD BLISTER ON TOP. COVERED WITH PLASTER AND VERONICA WRAP. VASELINE GAUZE. PT TOLERATED WELL.
[2020-02-27] MEDS ORDERED: AMOX/K CLAV875 M1 PO (12:56)
--- NOTE | 2020-02-27 13:00 | NUR ---
IV SITE CAME OUT AND PT REFUISED TO HAVE ANOTHER IV PLACED. INFORMED KYLAH SOLITARIO. HAD ME GIVE HER A LORTAB DUE TO THE MORPHINE COULD ONLY BE GIVEN VIA IV. NO MORPHINE WAS GIVEN.
[2020-02-27] MEDS ORDERED: LORTAB5 PO (13:35)
--- NOTE | 2020-02-27 15:19 | NUR ---
DISCHARGE INSTRUCTION SGIVEN AND VERBALIZED UNDERSTANDING. EXPLAINED TO THE PT AGAIN ABOUT " NO WEIGHT BEARING ON THE LEFT FOOT" Discharge instructions given. Patient verbalizes understanding of same. Discharged in stable condition via Wheelchair to Home with family. All belongings sent with pt.
== END 2020-02-27 15:18 | disposition home health service (06) ==
LOC: ED 17:16 → ED-I 20:15 → ED 20:26 → ED-I 20:27 → MS2 02-27 04:41 → ED-I 02-27 05:10 → MS2 02-27 06:04
PROVIDERS: Emergency Medicine; Nurse Practitioner Family; ADMIT Internal Medicine; ATTEND Internal Medicine
DX: S93.325A Dislocation of tarsometatarsal joint of left foot, initial encounter (principal); S92.212A Displaced fracture of cuboid bone of left foot, initial encounter for closed fracture; S92.322A Displaced fracture of second metatarsal bone, left foot, initial encounter for closed fracture; S92.415A Nondisplaced fracture of proximal phalanx of left great toe, initial encounter for closed fracture; S90.32XA Contusion of left foot, initial encounter; L03.116 Cellulitis of left lower limb; I10 Essential (primary) hypertension; J44.9 Chronic obstructive pulmonary disease, unspecified; E11.9 Type 2 diabetes mellitus without complications; G40.909 Epilepsy, unspecified, not intractable, without status epilepticus; E78.5 Hyperlipidemia, unspecified; F31.9 Bipolar disorder, unspecified; F17.210 Nicotine dependence, cigarettes, uncomplicated; F17.200 Nicotine dependence, unspecified, uncomplicated; I25.2 Old myocardial infarction; W19.XXXA Unspecified fall, initial encounter; Z95.5 Presence of coronary angioplasty implant and graft; Z20.828 Contact with and (suspected) exposure to other viral communicable diseases
CPT/HCPCS: G0378; J1650; Q9967

== ENCOUNTER 2020-04-02 10:10 | Inpatient (IN) | payer OTHER ==
[~2020-04-02] VITALS: Ht 167.6 cm; Wt 111.4 kg
[~2020-04-02 10:10] MED LIST changes: +AMOX/K CLAV875 M1 PO; +LORTAB5 PO
--- NOTE | 2020-04-02 11:07 | NUR ---
PT ARRIVED VIA WITH VOLUNTEER.
[2020-04-02 11:10] VITALS: BP 226/105
--- NOTE | 2020-04-02 11:15 | NUR ---
INFORMED THE ARPN RE: BP 226/105 NO MEDS TAKEN THIS AM.
--- NOTE | 2020-04-02 11:36 | NUR ---
DR VORA WITH INFECTIOUS DISEASE CONSULTED SPEAKING [facility] PT AND STAFF.
[2020-04-02 11:55] LABS: HEMATOCRIT 41.9 % (37.0-47.0); HEMOGLOBIN 13.2 g/dl (12.0-16.0); IMMATURE GRANULOCYTES 0.5 % (0.0-5.0); MEAN CORPUSCULAR HGB 31.5 pG CALC (26.0-32.0); MEAN CORPUSCULAR HGB CONC 31.5 g/dL CAL (32.0-36.0); NEUT# 4.6 thou/uL (2.00-7.15); RED BLOOD COUNT 4.19 mill/uL (4.20-5.60); RED CELL DISTRI WIDTH 13.2 % (11.5-15.5)
[2020-04-02 11:56] VITALS: BP 192/95
--- NOTE | 2020-04-02 11:58 | NUR ---
PT ARRIVED TO ROOM 280 AT 1100 VIA WHEELCHAIR WITH VOLUNTEER; ALERT AND ORIENTED. CHANGED INTO GOWN AND ASSESSMENT COMPLETED. 20G IV STARTED TO LAC AND LABS OBTAINED AND SENT TO LAB INCLUDING BLOOD CULTURES; LEFT FOOT WOUND CULTURE AND COVID ANTIGEN SWAB. PT DENIES PAIN. RESPIRATIONS EVEN AND UNLABORED ON ROOM AIR; LOOSE NONPRODUCTIVE COUGH; WHEEZES AUSCULTATED THROUGHOUT LUNG RUVALCABA. PT SMOKES A PACK OF CIGARETTES PER DAY AND REQUESTS A NICTOINE PATCH. LEFT PEDAL PULSE FOUND WITH DOPPLER; PHOTO TAKEN OF SURGICAL WOUND AND PLACED IN CHART; NEW DRESSING APPLIED INCLUDING IODINE 4X4 CARSON, KERLEX, AND VERONICA WRAP. OREINTED TO ROOM AND CALL LIGHT SYSTEM. PLAN OF CARE DISCUSSED. PT ENCOURAGED TO VERBALIZE CONCERNS. STATES UNDERSTANDING. SAFETY MEAURES IN PLACE. CALL LIGHT WITHIN REACH.
--- NOTE | 2020-04-02 12:30 | NUR ---
PT IS RELAXING IN BED WITH NO DISTRESS NOTED. IV SITE IS FREE FROM REDNESS OR EDEMA.
[2020-04-02 12:44] LABS: ALBUMIN 4.1 g/dL (3.2-5.0); ALKALINE PHOSPHATASE 184 u/l (38-126); ANION GAP 13 (6-22 (CALC)); BILIRUBIN, TOTAL 0.3 mg/dL (0.0-1.4); BUN 19 mg/dL (8-23); BUN/CREATININE RATIO 26 (12-20 (CALC)); CARBON DIOXIDE 26 mmol/l (22-30); CHLORIDE 106 mmol/l (95-108); CREATININE 0.7 mg/dL (0.5-1.0); GFR > 60 ML/MIN (>=60 (CALC)); GFR FOR AFR.AMER. > 60 ML/MIN (>=60 (CALC)); SGOT/AST 17 u/l (9-36); SODIUM 140 mmol/l (137-146); TOTAL PROTEIN 7.6 g/dL (6.3-8.2)
[2020-04-02 12:49] LABS: POTASSIUM 5.2 mmol/l (3.5-5.1)
[2020-04-02] MEDS ORDERED: ATIVAN0.5 MG PO (13:03)
[2020-04-02] MEDS ORDERED: TRAZODONE HYDR150 MG PO (13:04)
--- NOTE | 2020-04-02 13:52 | NUR ---
PT REVIEWED PATIENT'S CHART AND PATIENT WILL BENEFIT FROM PHYSICAL THERAPY TREATMENT. ORDER FOR PT TO EVAL AND TREAT.
--- NOTE | 2020-04-02 14:13 | NUR ---
S: MADAN OCONNELL is a 64 F who presents with wound dehiscence. She has a history of hypertension, depression, COPD, diabetes type 2, seizure, chronic back pain, OA and [place]. All medications in patient's chart were reviewed. O: VS: 192/95 mmHg, P 75 bpm, RR 20 bpm ,T 96.9 F W 111.4 kg , 167.6 cm, Scr=0.7,CrCl= 102 ml/min A: Blood culture is pending. Wound culture is pending. P: Patient is on cefepime 2 gm Q12H IV. Vancomycin ordered for pharmacy to dose. Start Vancomycin 1000 mg IV Q8H. Vancomycin trough is drawn before the 4th dose on 04/03/20 @ 13:30. Vancomycin goal trough is between <10-20 mcg/ml>. Pharmacy will follow and or advise on antibiotics use as needed.
[2020-04-02] MEDS ORDERED: LAMOTRIGINE200 MG PO (14:17)
[2020-04-02] MEDS ORDERED: PAROXETINE HCL40 MG PO (14:18)
[2020-04-02] MEDS ORDERED: CYCLOBENZAPRINE10 MG PO (14:18)
[2020-04-02] MEDS ORDERED: LORAZEPAM0.5 MG PO (14:18)
[2020-04-02] MEDS ORDERED: ALBUTEROL SUL0.083 % IN (14:19)
[2020-04-02 16:10] VITALS: BP 161/87
--- NOTE | 2020-04-02 16:15 | NUR ---
PT IS RELAXING IN BED WITH NO DISTRESS NOTED. IV SITE IS FREE FROM REDNESS OR EDEMA.
[2020-04-02 19:20] VITALS: BP 163/82
--- NOTE | 2020-04-02 22:00 | NUR ---
PHYSICAL ASSESMENT COMPLETE. DRESSING TO LLE CLEAN, DRY AND INTACT. PT IS ABLE TO WIGGLE TOES, EXPOSED AREAS OF FOOT WARM AND DRY WITH SENSATION, MOVEMENT, AND CIRCULATION INTACT. SCHEDULED MEDICATIONS ADMINISTERED, SEE E-MAR. PLAN OF CARE REVIEWED. SPECIAL ATTENTION TO INSTRUCTIONS OF NWB TO LLE. PT VERBALIZES UNDERSTANDING AND DENIES QUESTIONS. DENIES NEEDS AT THIS TIME. CALL RATLIFF WITHIN REACH, AGREES TO CALL PRN.
--- NOTE | 2020-04-03 02:00 | NUR ---
PT LAYING IN BED WITH EYES CLOSED, APPEARS TO BE SLEEPING COMFORTABLY. RESPIRATIONS REGULAR AND UNLABORED. NO APPARENT DISTRESS. CALL RATLIFF REMAINS WITHIN REACH.
[2020-04-03 04:00] VITALS: BP 152/80
--- NOTE | 2020-04-03 06:14 | NUR ---
PT LAYING IN BED WITH EYES CLOSED, APPEARS TO BE SLEEPING COMFORTABLY. RESPIRATIONS REGULAR AND UNLABORED. NO APPARENT DISTRESS. CALL RATLIFF REMAINS WITHIN REACH.
--- NOTE | 2020-04-03 08:40 | NUR ---
PT RESTING IN BED, NO SIGNS OF DISTRESS NOTED, RESP EVEN AND UNLABORED. PT ALERT AND ORIENTED X3, DISCUSSED POC. PT VOICES NO NEEDS OR COMPLAINTS AT THIS TIME. DRESSING TO LLE CDI, ASSESSMENT COMPLETED, CALL LIGHT IN REACH,CONTINUE TO MONITOR.
[2020-04-03 08:41] VITALS: BP 180/85
--- NOTE | 2020-04-03 09:42 | NUR ---
AND RN AT BEDSIDE DOING DRESSING CHANGE
--- NOTE | 2020-04-03 12:00 | NUR ---
PT RESTING IN BED EATING LUNCH, NO SIGNS OF DISTRESS NOTED, RESP EVEN AND UNLABORED. CALL LIGHT IN REACH,CONTINUE TO MONITOR.
--- NOTE | 2020-04-03 15:11 | NUR ---
S: MADAN OCONNELL is a 64 F who presents with wound dihiscence in her left foot. She has a history of HTN, depression, seizure disorder, chronic back pain, CAD. All medications in patient's chart were reviewed. O: VS: BP 180/85 mmHg, P 78 bpm, RR 21 bpm,T 98 F W 111.357 kg, HT 66 in, Scr= 0.7, CrCl= 102 ml/min A: Blood culture shows no growth. Wound culture is pending. P: Patient is on cefepime 2 g q12h IV. Vancomycin ordered for pharmacy to dose. Start Vancomycin 1 g IV Q8H. Vancomycin trough is drawn before the 4th dose on 04/04/20 @ 13:30. Vancomycin trough is 14. Pharmacy will follow and or advise on antibiotics use as needed.
[2020-04-03 15:35] VITALS: BP 153/75
[2020-04-03 19:25] VITALS: BP 187/83
--- NOTE | 2020-04-03 20:02 | NUR ---
REPORT RECEIVED FROM CLAUDIA KEN. PT RESTING IN BED SUPINE; ASSESSMENT AND VITALS COMPLETE ALERT AND ORIENTED. PT DENIES PAIN. PTS LEFT LOWER FOOT WITH DRESSING AND VERONICA BANDAGE. RESPIRATIONS EVEN AND UNLABORED ON ROOM AIR AT REST. WEAK RIGHT PEDAL PULSE. PT ENCOURAGED TO VERBALIZE CONCERNS. STATES UNDERSTANDING. SAFETY MEASURES IN PLACE. CALL LIGHT WITHIN REACH.
--- NOTE | 2020-04-04 00:07 | NUR ---
REPORT RECEIVED FROM Shana VERAS RN AND CARE ASSUMED.
--- NOTE | 2020-04-04 00:17 | NUR ---
RESTING WITH EYES CLOSED. ON LT. SIDE. SIDE RAILS UP X 2, CALL RATLIFF WITHIN REACH. BED REMAINS IN LOWEST POSITION. WILL CONTINUE TO MONITOR.
--- NOTE | 2020-04-04 01:33 | NUR ---
UP TO BSC WITH MINIMAL ASSIST. DENIES NEEDS AT THIS TIME. DRESSING ON LT. FOOT CLEAN, DRY AND INTACT.
--- NOTE | 2020-04-04 04:02 | NUR ---
RESTING QUIETLY WITH EYES CLOSED. NO DISTRESS NOTED. WILL CONTINUE TO MONITOR.
[2020-04-04 04:35] VITALS: BP 195/100
--- NOTE | 2020-04-04 05:32 | NUR ---
REPORT TO Ernie PORTER RN.
[2020-04-04 07:06] VITALS: BP 141/72
--- NOTE | 2020-04-04 09:00 | NUR ---
PT AWAKE, ALERT, ORIENTED X 3. LUNGS SLIGHTLY COARSE, RA, NO SHORTNESS OF BREATH. LEFT FOOT SEEN BANDAGED, PALPABLE PULSES TO BILATERAL FEET. LABETALOL PROVIDED FOR ELEVATED BLOOD PRESSURE THIS MORNING, NORMAL NOW.
--- NOTE | 2020-04-04 13:20 | NUR ---
PT RESTS IN THE BED, NO DISTRESS. VANCO TROUGH DRAWN AT THIS TIME.
[2020-04-04 15:05] VITALS: BP 162/78
--- NOTE | 2020-04-04 18:06 | NUR ---
DRESSING CHANGED EARLIER TO LEFT FOOT, WELL TOLERATED BY PT. PT VERY PLEASED WITH HEALING SEEN. PT AWARE OF NPO AFTER MN STATUS.
--- NOTE | 2020-04-04 19:01 | NUR ---
REPORT FROM MAINE TAYLOR. ASSUMED PT CARE AT THIS TIME.
[2020-04-04 20:00] VITALS: BP 186/76
[2020-04-04 20:15] VITALS: BP 161/80
--- NOTE | 2020-04-04 20:47 | NUR ---
PT MEDICATED ORDERED. ASSESSMENT COMPLETE. PT MEDICATED FOR ANXIETY ALSO AT THIS TIME. DRESSING TO LLE, CDI. DISCUSSED POC AND NPO FOR SX IN AM. PT VERBALIZED UNDERSTANDING. SNACK PROVIDED AT THIS TIME. IV SITE APPEARS HEALTHY. BP ELEVATED AT THIS TIME, WILL HAVE RN ON SHIFT TO ADMINISTER PRN LABETALOL. PT DENIES ANY CURRENT WANTS OR NEEDS. CALL LIGHT WITHIN REACH. WILL CONTINUE TO MONITOR.
--- NOTE | 2020-04-04 20:50 | NUR ---
BP RECHECK BELOW LABATELOL PARAMETERS. WILL CONTINUE TO MONITOR.
[2020-04-05] VITALS (7 sets, daily range): BP systolic 155–188; BP diastolic 72–90
--- NOTE | 2020-04-05 01:30 | NUR ---
PT RESTING IN BED WITH EYES CLOSED. WAKES EASILY. IV ABT INITIATED. PT DENIES ANY PAIN OR DISCOMFORT. CALL LIGHT WITHIN REACH. WILL CONTINUE TO MONITOR.
--- NOTE | 2020-04-05 04:41 | NUR ---
RN ON SHIFT TO ADMINISTER IV LABATELOL FOR BP 171/82 HR 72. PT RESTING IN BED WITH EYES CLOSED. NO APPARENT DISTRESS OR ANXIETY NOTED. PT DENIES ANY CURRENT WANTS OR NEEDS. REMAINS NPO AT THIS TIME. CALL LIGHT WITHIN REACH. WILL CONTINUE TO MONITOR.
--- NOTE | 2020-04-05 05:22 | NUR ---
OR PACKET PREPARED.
--- NOTE | 2020-04-05 07:24 | NUR ---
PATIENT IN BED AWAKE ALERT AND ORIENTED AT THIS TIME. PATIENT DENIES ANY PAIN AND IS CURRENTLY NPO FOR STAND BY SURGERY FOR CLEANSING OF WOUND. ALL SAFETY MEASURES ARE IN PLACE CALL LIGHT WITHIN REACH SIDERAILS UP X 2
--- NOTE | 2020-04-05 08:30 | NUR ---
DR. CROW IN TO SEE PATIENT AND REDRESSED WOUND. PATIENT TOLD AT THIS TIME THAT SHE WILL BE GOING DOWN TO SURGERY ON 04/06/20. PATIENT NPO LIFTED AT THIS TIME AND WILL BE PLACED BACK ON NPO STATUS AT MIDNIGHT FOR AM SURGERY.
--- NOTE | 2020-04-05 10:09 | NUR ---
PATIENT EDUCATED ON NEED FOR A BIO-FIRE TEST AT THIS TIME. PATIENT AGREED AND TEST PREFORM AND SENT TO LAB.
--- NOTE | 2020-04-05 11:33 | NUR ---
PATIENT IN BED AT THIS TIME WATCHING TV DENIES ANY NEEDS CURRENTLY SIDERAILS UP X2 CALL LIGHT WITHIN REACH. DRESSING TO L FOOT DRY AND INTACT AT THIS TIME.
--- NOTE | 2020-04-05 15:41 | NUR ---
S: MADAN OCONNELL is a 64 F who presents with <LEFT FOOT INFECTION>. She has a history of <HYPERTENSION, DEPRESSION, BIPOLAR DISORDER, COPD, DIABETES TYPE 2, SEIZURE DISORDER, CHRONIC BACK PAIN, OSTEOARTHRITIS) . All medications in patient's chart were reviewed. O: VS: BP 158/84 mmhg, P<71>, RR<18bpm>,T<97.6> W <111.357kg>, HT<167.64cm>, Scr=<0.7>,CrCl= <102 ml/min> A: Blood culture <show no growth> P: Patient is on <cefepime 2gm IV Q 12H>. Vancomycin ordered for pharmacy to dose. Start Vancomycin <1GM> IV Q<12>H. Vancomycin trough is drawn before the 4th dose on <04/06/20 @ 20:30>. Vancomycin goal trough is between <10-15 mcg/ml>. Pharmacy will follow and or advise on antibiotics use as needed.
--- NOTE | 2020-04-05 17:26 | NUR ---
PATEINT GIVEN LABETALOL 10MG AT THIS TIME FOR BP OF 180/90. WILL CONTINUE TO MONITOR.
--- NOTE | 2020-04-05 18:08 | NUR ---
BLOOD PRESSURE RECHECKED AT THIS TIME AND WAS 155/76.
--- NOTE | 2020-04-05 20:00 | NUR ---
PATIENT RESTING IN BED AT THIS TIME-AWAKE ALERT AND ORIENTEDX3. PATIENT WITH NO COMPLAINTS AT THIS TIME. PATIENT FOR OR TOMMORROW WITH DR. FAY. NPO AFTER MN. IV SITE TO LEFT HAND INTACT-SITE IS HEALTHY AT THIS TIME. DRESSING TO LEFT FOOT ELEVATED ON PILLOWS. DRESSING TO LEFT FOOT IS CDI AND SECURED WITH VERONICA WRAP. CMS TO TOES WNL. SAFETY PRECAUTIONS REINFORCED. CALL LIGHT IN REACH. WILL CONT TO MONITOR. SIDERAILS PADDED FOR SEIZURE PRECAUTIONS.
[2020-04-06] VITALS (10 sets, daily range): BP systolic 138–181; BP diastolic 69–87
--- NOTE | 2020-04-06 | NUR ---
PATIENT APPEARS SLEEPING AT THIS TIME. NPO FOR OR IN AM. LEFT FOOT REMAINS ELEVATED ON PILLOWS. DRESSING INTACT. CALL LIGHT IN REACH. WILL CONT TO MONITOR.
--- NOTE | 2020-04-06 04:00 | NUR ---
PATIENT APPEARS SLEEPING WITH SHEET OVER HER HEAD. RESPS ARE EVEN AND UNLABORED. PATIENT IS NPO FOR OR THIS MORNING. LEFT FOOT DRESSING REMAINS DCI AND SECURED WITH VERONICA WRAP. CALL LIGHT IN REACH. WILL CONT TO MONITOR.
--- NOTE | 2020-04-06 11:52 | NUR ---
SURGERY NURSE HERE TO PHARMACY RETAIL SUPPORT SPECIALIST PATIENT FOR OR. ANITIBIOTIC SENT WITH SURGERY NURSE SIENA TAYLOR.
--- NOTE | 2020-04-06 16:54 | NUR ---
PATIENT IN BED AT THIS TIME CALL LIGHT WITHIN REACH. WOUND VAC ON L FOOT. DRESSING DRY AND INTACT PATIENT DENIES ANY PAIN AT THIS TIME.
--- NOTE | 2020-04-06 18:13 | NUR ---
CALLED [facility] FOR WOUND VAC AT SPOKE TO DERICK REGARDING WOUND VAC NUMBER [id number]. WAS GIVEN CONFIRMATION NUMBER [id number].
--- NOTE | 2020-04-06 20:00 | NUR ---
PATIENT RESTING IN BED-AWAKE ALERT AND ORIENTEDX3. LEFT FOOT DRESSING CDI AND SECURED WITH VERONICA WRAP TO WOUND VAC AT 125MMHG CONT WITH SCANT BROWN DRAINAGE NOTED. LEFT FOOT ELEVATED ON PILLOWS. CMS TO LEFT FOOT WNL. SALINE LOCK INTACT TO RAC-SITE IS HEALTHY AT THIS TIME. NO COMPLAINTS OF PAIN AT THIS ITME. VOIDING QS YELLOW URINE ON BEDPAN. SAFETY PRECAUTIONS REINFORCED. SIDERAILS PADDED FOR SEIZURE PRECAUTIONS. CALL LIGHT IN REACH. WILL CONT TO MONITOR.
[2020-04-07] VITALS (8 sets, daily range): BP systolic 130–196; BP diastolic 70–92
--- NOTE | 2020-04-07 00:27 | NUR ---
PATIENT RESTING IN BED-C/O PAIN TO OUTER ASPECT OF LEFT FOOT AND ALSO OF HEADACHE. MEDICATED WITH PERCOCET 1 TABLET PER PATIENT REQUEST TO ONLY TAKE 1. DRESSING TO LEFT FOOT INTACT AND SECURED WITH VERONICA WRAP. LEFT FOOT ELEVATED ON PILLOWS. WOUND VAC INTACT TO LEFT FOOT-125MMHG CONT WITH MINIMAL BROWN DRAINAGE NOTED. VOIDING QS YELLOW URINE ON BEDPAN. SAFETY PRECAUTIONS REINFORCED. CALL LIGHT IN REACH. WILL CONT TO MONITOR.
--- NOTE | 2020-04-07 04:01 | NUR ---
PATIENT AWAKE AND C/O SEVERE LEFT FOOT PAIN-MEDICATED WITH PERCOCET 10/325MG 2 TABLETS FOR 9/10 ON PAIN SCALE. LEFT FOOT ELEVATED ON PILLOWS. DRESSING TO LEFT FOOT INTACT AND SECURED WITH VERONICA WRAP TO WOUND VAC AT 125MMHG CONT WITH SCANT DRAINAGE NOTED. VOIDING QS YELLOW URINE ON BEDPAN. SAFETY PRECAUTIONS REINFORCED. CALL LIGHT IN REACH. WILL CONT TO MONITOR.
--- NOTE | 2020-04-07 04:50 | NUR ---
BP ELEVATED 194/82, HR-72. MEDICATED WITH LABETALOL 10MG IVP GIVEN FOR HTN. PATIENT STATES THAT SHE DID GET SOME RELIEF FROM PAIN MEDS GIVEN AND NOW AT 4/10 ON PAIN SCALE. CALL LIGHT IN REACH. WILL CONT TO MONITOR,
[2020-04-07 06:43] LABS: HEMATOCRIT 37.5 % (37.0-47.0); HEMOGLOBIN 11.6 g/dl (12.0-16.0); MEAN CELL VOLUME 101.6 fL CALC (80.0-100.0); MEAN CORPUSCULAR HGB 31.4 pG CALC (26.0-32.0); MEAN CORPUSCULAR HGB CONC 30.9 g/dL CAL (32.0-36.0); RED BLOOD COUNT 3.69 mill/uL (4.20-5.60); RED CELL DISTRI WIDTH 13.2 % (11.5-15.5)
[2020-04-07 07:11] LABS: ANION GAP 10 (6-22 (CALC)); BUN 18 mg/dL (8-23); BUN/CREATININE RATIO 28 (12-20 (CALC)); CARBON DIOXIDE 26 mmol/l (22-30); CHLORIDE 106 mmol/l (95-108); CREATININE 0.6 mg/dL (0.5-1.0); GFR > 60 ML/MIN (>=60 (CALC)); GFR FOR AFR.AMER. > 60 ML/MIN (>=60 (CALC)); POTASSIUM 4.5 mmol/l (3.5-5.1); SODIUM 137 mmol/l (137-146)
--- NOTE | 2020-04-07 07:45 | NUR ---
PATIENT IN BED AT THIS TIME DENIES ANY PAIN RATES PAIN 0 OUT OF SCALE OF 0-10. WOUND VAC IN PLACE AND DRAINING SCANT AMOUNT OF BROWN DRAINAGE AT THIS TIME. DRESSING TO L FOOT DRY AND INTACT AND FOOT ELEVATED UP ON 2 PILLOWS. SIDERAILS UP X 2 CALL LIGHT WITHIN REACH.
--- NOTE | 2020-04-07 09:42 | NUR ---
S: MADAN OCONNELL is a 64 F who presents with Cellulitis of foot. She has a history of hypertension, bipolar disorder, COPD, T2 diabetes, swizure and osteoarthrits-degenerative joint disease. All medications in patient's chart were reviewed. O: VS: BP 158/82 mm Hg, P71 beats/min, RR 18 breath/min,T 97.6 F W 111.357kg, HT 167.6cm, Scr=0.6 ,ZfAr=378.8 ml/min Vancomycin trough = 12 mcg/ml A: Blood culture shows no growth. Wound culture shows coag neg staph sensitive to vancomycin. P: Patient is on cefepime 2 grams IV Q12H . Vancomycin ordered for pharmacy to dose. Continue Vancomycin 1 GRAM IV Q12H. Vancomycin goal trough is between 10-15 mcg/ml Pharmacy will follow and or advise on antibiotics use as needed.
--- NOTE | 2020-04-07 12:05 | NUR ---
PATIENT IN BED EVITA ANY NEEDS WOUND VAC IN PLACE CALL LIGHT WITHIN REACH SIDERAILS UPX 2.
--- NOTE | 2020-04-07 16:00 | NUR ---
PATIENT B/P AT THIS TIME WAS 180/92. 10MG OF LABETALOL GIVEN AT THIS TIME. WILL MONITOR B/P
--- NOTE | 2020-04-07 16:16 | NUR ---
PATIENT LAYING IN BED PATIENT COMPLAINING ABOUT NOT BEING DISCHARGED AT THIS TIME. PATIENT EDUCATED REGARDING WHY AND THE MEDICAL REASONS SHE WAS NOT BEING DISCHARGE FOR. PATIENT VERBALIZES UNDERSTANDING AND APOLOGIZED FOR GETTING UPSET. PATIENT WOUND VAC IS STILL PATENT AND DRESSING ON L FOOT DRY AND INTACT.
--- NOTE | 2020-04-07 16:50 | NUR ---
B/P AT THIS TIME IS 160/75 AND IS COMING DOWN FROM PREVIOUS READING. WILL CONTINUE TO MONITOR PER PROVIDER.
--- NOTE | 2020-04-07 20:00 | NUR ---
PATIENT RESTING IN BED AT THIS TIME WITH LEFT FOOT ELEVATED ON PILLOWS-DRESSING TO THE LEFT FOOT IS INTACT SECURED WITH VERONICA WRAP TO WOUND VAC AT 125MMHG CONT. SCANT DRAINING NOTED IN TUBING AND CANISTER. CMS TO LEFT TOES WNL. PATIENT WITH C/O SEVERE LEFT FOOT PAIN-MEDICATED WITH PERCOCET 10/325MG 2 TABLETS. SALINE LOCK TO RAC INTACT AND APPEARS HEALTHY AT TH IS TIME. ANXIOUS FOR D/C HOME. SAFETY PRECAUTIONS REINFORCED. CALL LIGHT IN REACH. WILL CONT TO MONITOR.
[2020-04-07] MEDS ORDERED: KEFLEX500 M1 PO (21:43)
[2020-04-07] MEDS ORDERED: DOXYCYCL HYC100 MG PO (21:43)
--- NOTE | 2020-04-08 | NUR ---
PATIENT APPEARS SLEEPING AT THIS TIME POSITIONED ON LEFT SIDE WITH EYES CLOSED. RESPS ARE EVEN AND UNLABORED. WOUND VAC INTACT TO LEFT FOOT. CALL LIGHT IN REACH. WILL CONT TO MONITOR.
[2020-04-08 00:35] VITALS: BP 140/74
--- NOTE | 2020-04-08 01:23 | NUR ---
WING HUNG ORDERED VIA [facility] IV SITE. PATIENT WITH C/O SEVERE LEFT FOOT PAIN-9/10 ON PAIN SCALE. MEDICATED WITH PERCOCET 10/325MG 2 TABLETS. CALL LIGHT IN REACH. WILL CONT TO MONITOR.
[2020-04-08 04:05] VITALS: BP 200/90
--- NOTE | 2020-04-08 05:00 | NUR ---
PATIENT RESTING IN BED WITH HTN-MEDICATED WITH LABETALOL 10MG IVP. MEDICATED WITH ATIVAN FOR ANXIETY AND WITH PERCOCET FOR PAIN. WILL CONT TO MONITOR.
[2020-04-08 05:27] VITALS: BP 143/73
--- NOTE | 2020-04-08 09:00 | NUR ---
PT AWAKE, ALERT, ORIENTED X 3. LUNGS CLEAR, RA. LEFT FOOT DRESSING AND WOUND VAC SEEN IN PLACE. PT ANTICIPATES DISCHARGE HOME TODAY.
[2020-04-08] MEDS ORDERED: PERCOCET1 TA4 PO (10:03)
[2020-04-08 10:18] VITALS: BP 143/73
--- NOTE | 2020-04-08 15:40 | NUR ---
PT VERBALIZES UNDERSTANDING OF DC INSTRUCTIONS, READIED FOR DISCHARGE. IV REMOVED, PT CHANGES INTO HER OWN CLOTHES, WAITS IN ROOM FOR WOUND VAC TO ARRIVE FROM [facility]. PT IN STABLE CONDITION.
--- NOTE | 2020-04-08 16:00 | NUR ---
WOUND VAC ARRIVES FROM [facility], TWO BOXES. PT PLACED ON THAT WOUND VAC, TAKEN TO ER PARKING LOT WHERE TAXI WAITS FOR HER.
--- NOTE | 2020-04-08 18:23 | NUR ---
OF NOTE, PT DID NOT WANT THE RX FOR OXYCODONE. THE ONE OFFERED WAS VOIDED AND PLACED IN RECYCLE BIN.
--- NOTE | 2020-04-10 20:00 | NUR ---
CALLED [facility] WOUND VAC AT SPOKE TO DEANDRE REGARDING RETURNING THE WOUND VAC. WAS GIVEN REFERENCE NUMBER [id number].
== END 2020-04-08 16:30 | disposition home health service (06) | DRG 904 ==
LOC: MS2 10:10
PROVIDERS: Nurse Practitioner; ADMIT Internal Medicine; ATTEND Internal Medicine
PROC: 0HRNXK3 Replacement of Left Foot Skin with Nonautologous Tissue Substitute, Full Thickness, External Approach (ICD-10-PCS; principal; 2020-04-06)
PROC: 0HBNXZZ Excision of Left Foot Skin, External Approach (ICD-10-PCS; 2020-04-06)
DX: T81.31XA Disruption of external operation (surgical) wound, not elsewhere classified, initial encounter (principal); T81.41XA Infection following a procedure, superficial incisional surgical site, initial encounter; L03.116 Cellulitis of left lower limb; S92.812D Other fracture of left foot, subsequent encounter for fracture with routine healing; I10 Essential (primary) hypertension; J44.9 Chronic obstructive pulmonary disease, unspecified; E11.9 Type 2 diabetes mellitus without complications; I25.10 Atherosclerotic heart disease of native coronary artery without angina pectoris; F31.9 Bipolar disorder, unspecified; G40.909 Epilepsy, unspecified, not intractable, without status epilepticus; M19.90 Unspecified osteoarthritis, unspecified site; M54.9 Dorsalgia, unspecified; G89.29 Other chronic pain; F17.200 Nicotine dependence, unspecified, uncomplicated; I25.2 Old myocardial infarction; B95.7 Other staphylococcus as the cause of diseases classified elsewhere; X58.XXXD Exposure to other specified factors, subsequent encounter; Y83.1 Surgical operation with implant of artificial internal device as the cause of abnormal reaction of the patient, or of later complication, without mention of misadventure at the time of the procedure; Z79.84 Long term (current) use of oral hypoglycemic drugs; Z96.652 Presence of left artificial knee joint; Z95.5 Presence of coronary angioplasty implant and graft; Z96.641 Presence of right artificial hip joint; Z98.1 Arthrodesis status; Z91.19 Patient's noncompliance with other medical treatment and regimen; Z20.828 Contact with and (suspected) exposure to other viral communicable diseases
CPT/HCPCS: J0692; Q3014